=== PATIENT | female | born 1990 | race Caucasian/White ===

== ENCOUNTER 2016-10-07 14:46 | Emergency (ER) | payer OTHER ==
[2016-10-07] MEDS ORDERED: LORazepam 2 MG/ML SYRINGE IM STA (15:04)
--- NOTE | 2016-10-07 15:27 | ED ---
Anxiety HPI - General Chief Complaint: Anxiety Stated Complaint: Anxiety Time Seen by Provider: 10/07/16 14:57 Source: patient Mode of arrival: wheelchair - History of Present Illness Initial Comments: This 26-year-old white female presents complaining of anxiety and panic attacks. She states that this has been present over the last 3 days. She states that she has been having panic attacks every day. She had to leave work 3 days ago due to a panic attack. She apparently has a long-standing history of anxiety ever since childhood. She's been seeing a psychiatrist recently and was started on Latuda 3 weeks ago. They relate that this medication does not seem to be helping. Her next appointment with the psychiatrist is approximately one month away. She complains of having some lightheadedness, chest tightness, shortness of breath. She denies any extremity tingling. She is quite tearful. No other complaints or modifying factors. - Related Data Home Medications: Home Medications Medication Instructions Recorded Confirmed Lurasidone HCl [Latuda] 20 mg PO AC-SUPPER 10/07/16 10/07/16 diphenhydrAMINE HCL [Benadryl] 25 mg PO DAILY PRN 10/07/16 10/07/16 Previous Rx's Medication Instructions Recorded ALPRAZolam [Xanax] 0.5 mg PO Q8HR PRN #12 tab 10/07/16 Allergies/Adverse Reactions: Allergies Allergy/AdvReac Type Severity Reaction Status Date / Time No Known Allergies Allergy Verified 10/07/16 15:35 Review of Systems ROS Statement: Those systems with pertinent positive or pertinent negative responses have been documented in the HPI. ROS Other: All systems not noted in ROS Statement are negative. Past Medical History Past Medical History: No Reported History History of Any Multi-Drug Resistant Organisms: None Reported Past Surgical History: Section Past Psychological History: Anxiety, Depression, Schizoaffective Disorder Smoking Status: Current every day smoker Past Alcohol Use History: Occasional Past Drug Use History: Marijuana General Exam - General Exam Comments Initial Comments: GENERAL: The patient is well nourished and well hydrated. VITAL SIGNS: Heart rate, blood pressure, respiratory rate reviewed as recorded in nurse's notes. EYES: Pupils are round and reactive. Extraocular movements are intact. No conjunctival / lid redness or swelling. ENT: No external evidence of injury, swelling, or ecchymosis. Airway is patent. Throat is clear. NECK: Nontender. No swelling or evidence of injury. No subcutaneous emphysema. Trachea is midline. No thyroid mass. HEART: Regular rate and rhythm. Good peripheral pulses. LUNGS/CHEST: Breath sounds clear and equal bilaterally. No rales, rhonchi, or wheezes. No ecchymosis, subcutaneous emphysema, or tenderness. ABDOMEN: Abdomen soft without tenderness. No palpable masses or organomegaly. No peritoneal signs. No abdominal wall swelling or ecchymosis. EXTREMITIES: No extremity tenderness. Normal muscle tone and function. No thoracolumbar tenderness. NEUROLOGIC: Sensation is grossly intact. Cranial nerve exam reveals face is symmetrical, tongue is midline, speech is clear. SKIN: No abrasions or ecchymosis is noted. No induration or masses noted. PSYCHIATRIC: Alert and oriented. Appears very anxious and tearful. Limitations: no limitations Course Vital Signs 10/07/16 14:50 Temperature 98.4 F Pulse Rate 124 H Respiratory 22 Rate Blood Pressure 134/80 O2 Sat by Pulse 100 Oximetry Medical Decision Making - Medical Decision Making The patient was seen and examined. All diagnostics were reviewed. An EKG was done and this shows a normal sinus rhythm at a rate of 95. There is no acute ST -T wave changes identified. The MT interval is 130, QRS duration is 80, and the QTc interval is 447. She receives Ativan intramuscularly. She is feeling remarkably improved on recheck. There is no further chest pain or shortness of breath. It is felt as though all her symptoms are due to anxiety. She is counseled regarding anxiety in detail. She should follow-up with her psychiatrist for further medication dosing or change. She will be prescribed some Xanax in the short-term. She leaves in no identifiable distress. Disposition Clinical Impression: Acute anxiety, Panic attack Disposition: HOME SELF-CARE Condition: Good Instructions: Generalized Anxiety Disorder (ED), Panic Attack (ED) Additional Instructions: Please follow-up with her psychiatrist as soon as possible. Prescriptions: ALPRAZolam [Xanax] 0.5 mg PO Q8HR PRN #12 tab PRN Reason: Anxiety Referrals: Shemar Hartmann MD [Primary Care Provider] - 1-2 days Time of Disposition: 16:01
[2016-10-07 16:21] VITALS: BP 133/82; PULSE 89; RESP 16; TEMP 98.3
== END 2016-10-07 16:20 | disposition home or self-care (01) ==
LOC: EC 14:46
DX: F41.0 Panic disorder [episodic paroxysmal anxiety] (principal); F32.9 Major depressive disorder, single episode, unspecified; F17.200 Nicotine dependence, unspecified, uncomplicated; Z79.899 Other long term (current) drug therapy
CPT/HCPCS: 93005; 99283; 96372; J2060

== ENCOUNTER 2016-11-12 17:24 | Emergency (ER) | payer OTHER ==
[2016-11-12 17:29] VITALS: BP 123/76; PULSE 97; RESP 18; TEMP 99.9
--- NOTE | 2016-11-12 17:37 | ED ---
General Adult HPI - General Chief complaint: Extremity Injury, Upper Stated complaint: Wrist Injury Time Seen by Provider: 11/12/16 17:29 Source: patient, RN notes reviewed Mode of arrival: ambulatory Limitations: no limitations - History of Present Illness Initial comments: 26-year-old female presents for right wrist pain. She was at work carrying a tray and she heard a pop in her wrist now has pain along the outside. Patient states no other injury from the incident her pain is mild. Worse to full range of motion of the right wrist. Patient denies any other injuries patient denies any direct trauma that she is aware of. Patient denies any recent fever, chills , shortness of breath, chest pain, back pain, abdominal pain, nausea vomiting, numbness or tingling, dysuria or hematuria, constipation or diarrhea, headaches or visual changes, or any other current symptoms. - Related Data Home Medications Medication Instructions Recorded Confirmed Lurasidone HCl [Latuda] 40 mg PO AC-SUPPER 10/07/16 11/12/16 diphenhydrAMINE HCL [Benadryl] 25 mg PO DAILY PRN 10/07/16 11/12/16 ALPRAZolam [Xanax] 0.25 mg PO TID PRN 11/12/16 11/12/16 Allergies Allergy/AdvReac Type Severity Reaction Status Date / Time No Known Allergies Allergy Verified 11/12/16 17:29 Review of Systems ROS Statement: Those systems with pertinent positive or pertinent negative responses have been documented in the HPI. ROS Other: All systems not noted in ROS Statement are negative. Past Medical History Past Medical History: No Reported History Additional Past Medical History / Comment(s): lipoma rt abdominal wall, "borderline diabetes" History of Any Multi-Drug Resistant Organisms: None Reported Past Surgical History: Section Additional Past Surgical History / Comment(s): c sections x 2 Past Anesthesia/Blood Transfusion Reactions: Postoperative Nausea & Vomiting ( PONV) Additional Past Anesthesia/Blood Transfusion Reaction / Comment(s): no hx blood transfusion Past Psychological History: Anxiety, Depression, Schizoaffective Disorder Smoking Status: Current every day smoker - Past Family History Mother Family Medical History: No Reported History General Exam - General Exam Comments Initial Comments: General: The patient is awake and alert, in no distress, and does not appear acutely ill. Neck: The neck is supple, there is no tenderness. Cardiovascular: There is a regular rate and rhythm. No murmur, rub or gallop is appreciated. Respiratory: Lungs are clear to auscultation, respirations are non-labored, breath sounds are equal. No wheezes, stridor, rales, or rhonchi. Musculoskeletal: Sensation intact to both positive right upper x-ray. Fund motion of right elbow and right wrist and right hand. Some tenderness along the distal ulna. No bony tenderness throughout the hand. No anatomical snuffbox tenderness. No laxity. Neurological: CN II-XII intact, There are no obvious motor or sensory deficits. Coordination appears grossly intact. Speech is normal. Skin: Skin is warm and dry and no rashes or lesions are noted. Psychiatric: Normal mood and affect. Limitations: no limitations Course Vital Signs 11/12/16 17:26 Temperature 99.9 F H Pulse Rate 97 Respiratory 18 Rate Blood Pressure 123/76 O2 Sat by Pulse 100 Oximetry Medical Decision Making - Medical Decision Making 26-year-old female presents with history of right wrist strain. At this time we will start the patient on Motrin and Tylenol regimen for pain. Discussed ice. We discussed follow-up return parameters all patient's questions. She stated that she understood and she was in agreement with plan. All questions have been answered. She'll be discharged. - Radiology Data Radiology results: report reviewed, image reviewed Disposition Clinical Impression: Right wrist sprain Disposition: HOME SELF-CARE Condition: Stable Instructions: Wrist Sprain (ED) Additional Instructions: Please use medication as discussed. Please follow up with family doctor if symptoms have not improved over the next two days. Please return to the emergency room if your symptoms increase or worsen or for any other concerns. Referrals: Lorenzo Singh MD [Primary Care Provider] - 1-2 days Time of Disposition: 17:57
--- NOTE | 2016-11-12 17:52 | XR ---
EXAMINATION TYPE: XR wrist complete RT DATE OF EXAM: 11/12/2016 CLINICAL HISTORY: Right wrist pain after injury. TECHNIQUE: Frontal, lateral, scaphoid, and oblique images of the right wrist are obtained. COMPARISON: None FINDINGS: There is no acute fracture/dislocation evident in the right wrist. The joint spaces in th e right wrist appear within normal limits. The overlying soft tissue appears unremarkable. IMPRESSION: There is no acute fracture or dislocation in the right wrist.
== END 2016-11-12 18:14 | disposition home or self-care (01) ==
LOC: EC 17:24
DX: S63.501A Unspecified sprain of right wrist, initial encounter (principal); F25.9 Schizoaffective disorder, unspecified; F32.9 Major depressive disorder, single episode, unspecified; F41.9 Anxiety disorder, unspecified; F17.200 Nicotine dependence, unspecified, uncomplicated; Z79.899 Other long term (current) drug therapy; X58.XXXA Exposure to other specified factors, initial encounter; Y99.0 Civilian activity done for income or pay
CPT/HCPCS: 99283

== ENCOUNTER 2016-11-14 08:31 | Day surgery (SDC) | payer OTHER ==
[2016-11-12 09:30] VITALS: BMI 21.2
[~2016-11-14 08:31] MED LIST: DEXAMETHASONE SOD PHOSPHATE 10 MG/ML 1 ML VIAL IV ONE; HEPARIN SODIUM,PORCINE 5,000 UNIT/ML 1 ML VIAL SQ ONE; HYDROmorphone 0.5 MG/0.5 ML SYRINGE IVP PRN; LACTATED RINGERS 1,000 ML IV SCH; MIDAZOLAM 2 MG/2 ML VIAL IV PRN; ONDANSETRON 4 MG/2 ML VIAL IVP ONE; Pre Op ABX Message 1 EACH MISC MISCELLANE ONE; SCOPOLAMINE 1.5MG/72HR PATCH TRANSDERM ONE
[2016-11-14] MEDS ORDERED: LIDOCAINE 1% 20 ML VIAL (10MG/ML) FOR IV START INTRADERMA ONE (09:00)
[2016-11-14] MEDS ORDERED: BUPIVACAINE-EPI 0.5%-1:200,000 10 ML VIAL SQ ONE (09:19)
--- NOTE | 2016-11-14 09:55 | P.GSHP ---
History of Present Illness H&P Date: 11/14/16 Chief Complaint: Right abdominal wall lipoma Is a 26-year-old female referred from Dr. Lorenzo Lynn. Patient presents today for excision of right abdominal wall lipoma. Patient developed a 15 cm lipoma of her right abdominal wall. The lipomas located in the right lower quadrant. Past Medical History Past Medical History: No Reported History Additional Past Medical History / Comment(s): lipoma rt abdominal wall, "borderline diabetes" History of Any Multi-Drug Resistant Organisms: None Reported Past Surgical History: Section Additional Past Surgical History / Comment(s): c sections x 2 Past Anesthesia/Blood Transfusion Reactions: Postoperative Nausea & Vomiting ( PONV) Additional Past Anesthesia/Blood Transfusion Reaction / Comment(s): no hx blood transfusion Past Psychological History: Anxiety, Depression, Schizoaffective Disorder Smoking Status: Current every day smoker Past Alcohol Use History: Rare Additional Past Alcohol Use History / Comment(s): started smoking at age 13,on and off <1ppd Past Drug Use History: None Reported - Past Family History Mother Family Medical History: No Reported History Medications and Allergies Home Medications Medication Instructions Recorded Confirmed Type Lurasidone HCl [Latuda] 40 mg PO AC-SUPPER 10/07/16 11/12/16 History diphenhydrAMINE HCL [Benadryl] 25 mg PO DAILY PRN 10/07/16 11/12/16 History ALPRAZolam [Xanax] 0.25 mg PO TID PRN 11/12/16 11/12/16 History Allergies Allergy/AdvReac Type Severity Reaction Status Date / Time No Known Allergies Allergy Verified 11/12/16 17:29 Surgical - Exam Vital Signs Temp Pulse Resp BP Pulse Ox 98.0 F 93 18 110/83 100 11/14/16 09:06 11/14/16 09:06 11/14/16 09:06 11/14/16 09:06 11/14/16 09:06 - General well developed, no distress - Eyes PERRL - ENT normal pinna - Neck no masses - Respiratory normal expansion - Cardiovascular Rhythm: regular - Abdomen 13 cm lipoma of right lower quadrant abdominal wall Abdomen: soft, non tender Assessment and Plan Plan: Right lower quadrant abdominal wall lipoma. We will perform excision.
[2016-11-14] MEDS ORDERED: LIDOCAINE 1% INJ 10MG/ML (20 ML MDV) ONE (10:03)
[2016-11-14] MEDS ORDERED: MIDAZOLAM 2 MG/2 ML VIAL ONE (10:03)
[2016-11-14] MEDS ORDERED: fentaNYL (PF) 50 MCG/ML 2 ML AMP ONE (10:03)
[2016-11-14] MEDS ORDERED: PROPOFOL 10 MG/ML 20 ML VIAL IV ONE (10:03)
[2016-11-14] MEDS ORDERED: SODIUM CHLORIDE 0.9% 50 ML with ceFAZolin 2,000 MG IV ONE ×2 (10:25)
--- NOTE | 2016-11-14 10:56 | P.OP ---
Date of Procedure: 11/14/16 Preoperative Diagnosis: Right abdominal wall lipoma Postoperative Diagnosis: Right abdominal wall lipoma Anesthesia: LUPE Surgeon: Nii Morse Pathology: other (Abdominal wall lipoma) Condition: stable Disposition: PACU Description of Procedure: The patient's placed on the operative table in the supine position. She received general anesthesia. Her abdomen was prepped and draped in usual sterile fashion. The patient had a 20 cm lipoma located in the right lower quadrant. The skin was incised with 15 blade and then using sharp and blunt dissection and electrocautery the lipoma was dissected free from the subcutaneous tissue the fascia. The lipoma measured approximately 20 cm in diameter. The Bovie was used for hemostasis. A MAT drain is placed into the wound brought out through separate stab incision in the skin was closed interrupted 3-0 Monocryl suture. Dermabond was applied. Recovery in stable condition.
[2016-11-14 11:02] VITALS: RESP 16; TEMP 98.2
[2016-11-14 11:48] VITALS: BP 127/79; PULSE 73
[2016-11-14] MEDS ORDERED: HYDROcodone/APAP 5-325MG 1 EACH TAB PO ONE (12:01)
== END 2016-11-14 13:08 | disposition home or self-care (01) ==
LOC: OR 08:31
PROVIDERS: ATTEND Surgery
DX: D17.1 Benign lipomatous neoplasm of skin and subcutaneous tissue of trunk (principal); R73.03 Prediabetes; F17.200 Nicotine dependence, unspecified, uncomplicated; F32.9 Major depressive disorder, single episode, unspecified; F41.9 Anxiety disorder, unspecified; Z79.899 Other long term (current) drug therapy
CPT/HCPCS: 11406; 88304; J2250; J1100; J2405; J2001; J3010; J0690; J2704

== ENCOUNTER 2017-02-20 14:08 | Emergency (ER) | payer OTHER ==
[2017-02-20 15:00] VITALS: BP 137/86; PULSE 92; RESP 18; TEMP 98.2
--- NOTE | 2017-02-20 15:08 | ED ---
General Adult HPI - General Chief complaint: Fall Stated complaint: Fall/Rib Pain Time Seen by Provider: 02/20/17 14:51 Source: patient, RN notes reviewed Mode of arrival: ambulatory Limitations: no limitations - History of Present Illness Initial comments: 26 yo female presents to the ER with cc of right sided rib pain after a fall that occurred last night. Patient states she tripped over a toy and landed onto her right sided ribs on a toy box. Patient states that she had this happen last night she thought he would improve but states continued to be there and she is having pain when she takes a deep breath. Patient states nothing else was injured from the incident. Patient denies any medications today. Patient states that she just wanted make sure that everything was okay and that she did not break anything. Patient denies any other symptoms at this time.Patient denies any recent fever, chills, shortness of breath, chest pain, back pain, abdominal pain, nausea vomiting, numbness or tingling, dysuria or hematuria, constipation or diarrhea, headaches or visual changes, or any other current symptoms. - Related Data Home Medications Medication Instructions Recorded Confirmed diphenhydrAMINE HCL [Benadryl] 25 mg PO DAILY PRN 10/07/16 01/16/17 ALPRAZolam [Xanax] 0.5 mg PO BID 11/12/16 01/16/17 Lurasidone [Latuda] 20 mg PO BID 01/16/17 01/16/17 Allergies Allergy/AdvReac Type Severity Reaction Status Date / Time cat dander Allergy Rash/Hives Verified 02/20/17 14:50 Review of Systems ROS Statement: Those systems with pertinent positive or pertinent negative responses have been documented in the HPI. ROS Other: All systems not noted in ROS Statement are negative. Past Medical History Past Medical History: No Reported History Additional Past Medical History / Comment(s): lipoma rt abdominal wall, "borderline diabetes" History of Any Multi-Drug Resistant Organisms: None Reported Past Surgical History: Section Additional Past Surgical History / Comment(s): c sections x 2 Past Anesthesia/Blood Transfusion Reactions: Postoperative Nausea & Vomiting ( PONV) Additional Past Anesthesia/Blood Transfusion Reaction / Comment(s): no hx blood transfusion Past Psychological History: Anxiety, Depression, Schizoaffective Disorder Smoking Status: Current every day smoker Past Alcohol Use History: None Reported Past Drug Use History: None Reported - Past Family History Mother Family Medical History: No Reported History General Exam Limitations: no limitations General appearance: alert, in no apparent distress Eye exam: Present: normal appearance, PERRL, EOMI. Absent: scleral icterus, conjunctival injection, periorbital swelling ENT exam: Present: normal exam, mucous membranes moist Neck exam: Present: normal inspection. Absent: tenderness, meningismus, lymphadenopathy Respiratory exam: Present: normal lung sounds bilaterally, chest wall tenderness (Right lateral chest wall. Deep breath improves pain with splinting) . Absent: respiratory distress, wheezes, rales, rhonchi, stridor Cardiovascular Exam: Present: regular rate, normal rhythm, normal heart sounds. Absent: systolic murmur, diastolic murmur, rubs, gallop, clicks GI/Abdominal exam: Present: soft, normal bowel sounds. Absent: distended, tenderness, guarding, rebound, rigid Neurological exam: Present: alert, oriented X3 Psychiatric exam: Present: normal affect, normal mood Skin exam: Present: warm, dry, intact, normal color. Absent: rash Course Vital Signs 02/20/17 14:53 Temperature 98.2 F Pulse Rate 92 Respiratory 18 Rate Blood Pressure 137/86 O2 Sat by Pulse 100 Oximetry Medical Decision Making - Medical Decision Making 26-year-old female presents for fall with right-sided rib pain. At this time the patient's x-rays have been reviewed that show no acute fracture. At this time we did discuss follow-up and all questions. Patient stated they are in agreement with management of this plan. - Radiology Data Radiology results: report reviewed, image reviewed Disposition Clinical Impression: Fall, Contusion of rib on right side Disposition: HOME SELF-CARE Condition: Stable Instructions: Rib Contusion (ED) Additional Instructions: Please use medication as discussed. Please follow up with family doctor if symptoms have not improved over the next two days. Please return to the emergency room if your symptoms increase or worsen or for any other concerns. Referrals: Lorenzo Singh MD [Primary Care Provider] - 1-2 days Time of Disposition: 15:29
--- NOTE | 2017-02-20 15:23 | XR ---
EXAMINATION TYPE: XR ribs RT w pa chest x-ray DATE OF EXAM: 02/20/2017 CLINICAL HISTORY: Chest and right-sided rib pain after fall injury yesterday. TECHNIQUE: Single frontal view of the chest is obtained. A frontal and oblique images of the right-si ded ribs are acquired. COMPARISON: Chest x-ray April 16, 2015. FINDINGS: There is no focal air space opacity, pleural effusion, or pneumothorax seen. The cardiac silhouette size is within normal limits. The osseous structures are intact. Dedicated images of right-sided ribs show no acute displaced fracture. Overlying soft tissue is unrem arkable. IMPRESSION: 1. No acute cardiopulmonary process. 2. No acute displaced right-sided rib fractures are seen.
== END 2017-02-20 15:35 | disposition home or self-care (01) ==
LOC: EC 14:08
DX: S20.211A Contusion of right front wall of thorax, initial encounter (principal); F41.9 Anxiety disorder, unspecified; F32.9 Major depressive disorder, single episode, unspecified; F25.9 Schizoaffective disorder, unspecified; F17.200 Nicotine dependence, unspecified, uncomplicated; Z91.09 Other allergy status, other than to drugs and biological substances; Z79.899 Other long term (current) drug therapy; W18.09XA Striking against other object with subsequent fall, initial encounter
CPT/HCPCS: 99283

== ENCOUNTER 2018-09-10 11:13 | Emergency (ER) | payer OTHER ==
[2018-09-10] MEDS ORDERED: ACETAMINOPHEN TAB 325 MG TAB PO STA (12:03)
--- NOTE | 2018-09-10 12:04 | ED ---
General Adult HPI - General Chief complaint: ENT Stated complaint: Thoat pain Time Seen by Provider: 09/10/18 11:27 Source: patient, RN notes reviewed Mode of arrival: ambulatory Limitations: no limitations - History of Present Illness Initial comments: 28-year-old female presents to the emergency department for a chief complaint of sore throat. Patient states that she started to have a sore throat yesterday. States that today it worsened. States that it hurts to swallow but denies any difficulty swelling. States that she has noticed "white spots" on her tonsils. Denies having a cough or congestion. Does admit to chills.Patient has no other complaints at this time including shortness of breath, chest pain, abdominal pain, nausea or vomiting, headache, or visual changes. - Related Data Home Medications Medication Instructions Recorded Confirmed diphenhydrAMINE HCL [Benadryl] 25 mg PO DAILY PRN 10/07/16 01/16/17 ALPRAZolam [Xanax] 0.5 mg PO BID 11/12/16 01/16/17 Lurasidone [Latuda] 20 mg PO BID 01/16/17 01/16/17 Previous Rx's Medication Instructions Recorded Amoxicillin 875 mg PO Q12HR #20 tablet 09/10/18 Allergies Allergy/AdvReac Type Severity Reaction Status Date / Time cat dander Allergy Rash/Hives Verified 09/10/18 11:22 Review of Systems ROS Statement: Those systems with pertinent positive or pertinent negative responses have been documented in the HPI. ROS Other: All systems not noted in ROS Statement are negative. Past Medical History Past Medical History: No Reported History Additional Past Medical History / Comment(s): lipoma rt abdominal wall,"borderline diabetes" History of Any Multi-Drug Resistant Organisms: None Reported Past Surgical History: Section Additional Past Surgical History / Comment(s): c sections x 2 Past Anesthesia/Blood Transfusion Reactions: Postoperative Nausea & Vomiting (PONV) Additional Past Anesthesia/Blood Transfusion Reaction / Comment(s): no hx blood transfusion Past Psychological History: Anxiety, Depression, Schizoaffective Disorder Past Alcohol Use History: Rare - Past Family History Mother Family Medical History: No Reported History General Exam Limitations: no limitations General appearance: alert, in no apparent distress Head exam: Present: atraumatic, normocephalic, normal inspection Eye exam: Present: normal appearance, PERRL, EOMI. Absent: scleral icterus, conjunctival injection, periorbital swelling ENT exam: Present: normal exam, mucous membranes moist, TM's normal bilaterally, normal external ear exam. Absent: normal oropharynx (uvula midline, tonsillar exudates noted bilaterally) Neck exam: Present: normal inspection, full ROM. Absent: tenderness, meningismus, lymphadenopathy Respiratory exam: Present: normal lung sounds bilaterally. Absent: respiratory distress, wheezes, rales, rhonchi, stridor Cardiovascular Exam: Present: regular rate, normal rhythm, normal heart sounds. Absent: systolic murmur, diastolic murmur, rubs, gallop, clicks GI/Abdominal exam: Present: soft, normal bowel sounds. Absent: distended, tenderness, guarding, rebound, rigid Neurological exam: Present: alert, oriented X3 Psychiatric exam: Present: normal affect, normal mood Course Vital Signs 09/10/18 11:21 Temperature 99.6 F Pulse Rate 109 H Respiratory 20 Rate Blood Pressure 146/102 O2 Sat by Pulse 98 Oximetry Medical Decision Making - Medical Decision Making 28-year-old female presents to the emergency Department for sore throat since yesterday. Patient is a low-grade fever. Anterior cervical lymphadenopathy palpated. No difficulty swallowing. Patient handling secretions, no acute distress. On exam patient does have tonsillar exudates noted bilaterally. T onsillar pillars are symmetric, uvula is midline, there is no evidence of peritonsillar abscess. Strep is positive. Patient will be treated with amoxicillin. Recommended following up with primary care in 1-2 days or returning here if she has any worsening symptoms. - Lab Data Lab Results 09/10/18 Range/Units 12:00 Group A Strep Rapid Positive A (Negative) Disposition Clinical Impression: Strep pharyngitis Disposition: HOME SELF-CARE Condition: Good Instructions (If sedation given, give patient instructions): Strep Throat (ED) Additional Instructions: Please take antibiotics as directed. Take Motrin and Tylenol for fever. Follow-up with primary care in 1-2 days. Return here to the emergency department if you have any worsening symptoms. Prescriptions: Amoxicillin 875 mg PO Q12HR #20 tablet Is patient prescribed a controlled substance at d/c from ED?: No Referrals: Lorenzo Singh MD [Primary Care Provider] - 1-2 days Time of Disposition: 13:25
[2018-09-10] MEDS ORDERED: AMOXICILLIN 500MG STARTER PACK 3 CAP BTL PO STA (13:33)
[2018-09-10 14:03] VITALS: BP 145/92; PULSE 80; RESP 16; TEMP 98.9
== END 2018-09-10 14:01 | disposition home or self-care (01) ==
LOC: EC 11:13
DX: J02.0 Streptococcal pharyngitis (principal); J30.81 Allergic rhinitis due to animal (cat) (dog) hair and dander; F41.9 Anxiety disorder, unspecified; F32.9 Major depressive disorder, single episode, unspecified; F25.9 Schizoaffective disorder, unspecified; R73.03 Prediabetes; Z79.899 Other long term (current) drug therapy
CPT/HCPCS: 87430; 99283

== ENCOUNTER 2019-12-17 13:49 | Emergency (ER) | payer OTHER ==
[2019-12-17] MEDS ORDERED: SODIUM CHLORIDE 0.9% 500 ML 500 ML IV STA (15:35)
[2019-12-17 16:03] LABS: Appearance,Urine Clear (Clear); Bilirubin,Urine Negative (Negative); Blood,Urine Negative (Negative); Color,Urine Yellow; Glucose,Urine (UA) Negative (Negative); Ketones,Urine Negative (Negative); Leukocyte Esterase,Urine Negative (Negative); Nitrite,Urine Negative (Negative); PH, Urine 6.5 (5.0-8.0); Protein,Urine Negative (Negative); Specific Gravity,Urine 1.015 (1.001-1.035); Urobilinogen,Urine <2.0 mg/dL (<2.0)
[2019-12-17 16:04] LABS: Basophils # (A) 0.1 k/uL (0-0.2); Basophils % (A) 1 %; Eosinophils # (A) 0.2 k/uL (0-0.7); Eosinophils % (A) 1 %; HCT 40.1 % (34.0-46.0); HGB 13.5 gm/dL (11.4-16.0); Lymphocytes # (A) 1.3 k/uL (1.0-4.8); Lymphocytes % (A) 10 %; MCH 30.8 pg (25.0-35.0); MCHC 33.7 g/dL (31.0-37.0); MCV 91.3 fL (80.0-100.0); Mean Platelet Volume 7.6; Monocytes # (A) 0.5 k/uL (0-1.0); Monocytes % (A) 4 %; Neutrophils # (A) 10.8 k/uL (1.3-7.7); Neutrophils % (A) 84 %; Platelet Count 208 k/uL (150-450); RBC 4.39 m/uL (3.80-5.40); RDW 12.2 % (11.5-15.5); WBC 12.9 k/uL (3.8-10.6)
[2019-12-17 16:16] LABS: ALT 20 U/L (4-34); AST 28 U/L (14-36); Acetaminophen <10.0 ug/mL; African American GFR (CKD) >90 (>60 ml/min/1.73 sqM); Albumin 4.3 g/dL (3.5-5.0); Alcohol <10 mg/dL; Alkaline Phosphatase 37 U/L (38-126); Anion Gap 5 mmol/L; Blood Urea Nitrogen 12 mg/dL (7-17); Calcium 9.3 mg/dL (8.4-10.2); Carbon Dioxide 25 mmol/L (22-30); Chloride 109 mmol/L (98-107); Glucose 96 mg/dL (74-99); Lipase 98 U/L (23-300); Non-African American GFR(CKD) >90 (>60 ml/min/1.73 sqM); Salicylate <1.0 mg/dL; Sodium 139 mmol/L (137-145); Total Bilirubin 0.5 mg/dL (0.2-1.3); Total Protein 7.1 g/dL (6.3-8.2)
[2019-12-17 16:18] LABS: Potassium 4.5 mmol/L (3.5-5.1)
--- NOTE | 2019-12-17 16:37 | XR ---
EXAMINATION TYPE: XR abdomen acute w cxr DATE OF EXAM: 12/17/2019 COMPARISON: Chest x-ray 04/16/2015 HISTORY: Abdominal pain diarrhea. TECHNIQUE: 4 views FINDINGS: Heart and mediastinum are normal. Lungs are clear. Diaphragm is normal. Bowel gas pattern i s normal. There is no sign of intestinal obstruction or pneumoperitoneum. Fecal pattern is normal. Th ere is no evidence of a mass. IMPRESSION: Nonacute abdomen. Chest x-ray unchanged compared to old exam.
[2019-12-17 17:14] LABS: Amphetamine Screen,Urine Not Detected (NotDetected); Barbiturate Screen,Urine Not Detected (NotDetected); Benzodiazepines Screen,Urine Not Detected (NotDetected); Cocaine Screen,Urine Not Detected (NotDetected); Methadone Screen, Urine Not Detected (NotDetected); Opiate Screen,Urine Not Detected (NotDetected); Oxycodone Screen, Urine Not Detected (NotDetected); Phencyclidine Screen,Urine Not Detected (NotDetected); Tricyclic Antidepressant,Urine Not Detected (NotDetected); Urn Cannabinoid Scrn Detected (NotDetected)
--- NOTE | 2019-12-17 17:52 | ED ---
General Adult HPI - General Chief complaint: Abdominal Pain Stated complaint: FEVER, COUGH, DIARRHEA Time Seen by Provider: 12/17/19 15:10 Source: patient, RN notes reviewed, old records reviewed Mode of arrival: ambulatory Limitations: no limitations - History of Present Illness Initial comments: 29-year-old female patient to ED for diarrhea abdominal discomfort earlier in the day that has since resolved. She denies any other acute complaints. She is requesting to be possibly tested for any sort of ingestants. Systemic: Pt denies fatigue, fever/chills, rash. Pt denies weakness, night sweats, weight loss. Neuro: Pt denies headache, visual disturbances, syncope or pre-syncope. HEENT: Pt denies ocular discharge or irritation, otalgia, rhinorrhea, pharyngitis or notable lymphadenopathy. Cardiopulmonary: Pt denies chest pain, SOB, heart palpitations, dyspnea on exertion. Abdominal/GI: Pt denies abdominal pain. : Pt denies dysuria, burning w/ urination, frequency/urgency. Denies new onset urinary or bowel incontinence. MSK: Pt denies myalgia, loss of strength or function in extremities. Neuro: Pt denies new onset weakness, paresthesias. - Related Data Home Medications Medication Instructions Recorded Confirmed Glucosamine Sulfate 500 mg PO DAILY 12/17/19 12/17/19 Methylsulfonylmethane [MSM] 1,000 mg PO DAILY 12/17/19 12/17/19 Turmeric Root Extract [Turmeric] 500 mg PO DAILY 12/17/19 12/17/19 Allergies Allergy/AdvReac Type Severity Reaction Status Date / Time cat dander Allergy Rash/Hives Verified 12/17/19 17:20 Review of Systems ROS Statement: Those systems with pertinent positive or pertinent negative responses have been documented in the HPI. ROS Other: All systems not noted in ROS Statement are negative. Past Medical History Past Medical History: No Reported History Additional Past Medical History / Comment(s): lipoma rt abdominal wall,"borderline diabetes" History of Any Multi-Drug Resistant Organisms: None Reported Past Surgical History: Section Additional Past Surgical History / Comment(s): c sections x 2 Past Anesthesia/Blood Transfusion Reactions: Postoperative Nausea & Vomiting (PONV) Additional Past Anesthesia/Blood Transfusion Reaction / Comment(s): no hx blood transfusion Past Psychological History: Anxiety, Depression, Schizoaffective Disorder Smoking Status: Former smoker, Vaper Past Alcohol Use History: Rare Past Drug Use History: Marijuana - Past Family History Mother Family Medical History: No Reported History General Exam - General Exam Comments Initial Comments: Constitutional: NAD, AOX3, Pt has pleasant affect. HEENT: NC/AT, trachea midline, neck supple, no lymphadenopathy. Posterior pharynx non erythematous, without exudates. External ears appear normal, without discharge. Mucous membranes moist. Eyes PERRLA, EOM intact. There is no scleral icterus. No pallor noted. Cardiopulmonary: RRR, no murmurs, rubs or gallops, no JVD noted. Lungs CTAB in anterior and posterior gonzalez. No peripheral edema. Abdominal exam: Abdomen soft and non-distended. Abdomen non-tender to palpation in all 4 quadrants. Bowel sounds active in LLQ. No hepatosplenomegaly. No ecchymosis Neuro: CN II-XII grossly intact. No nuchal rigidity. MSK: ROM in upper and lower extremities, 5/5 stregnth. Limitations: no limitations Course Vital Signs 12/17/19 12/17/19 12/17/19 13:57 17:24 18:17 Temperature 98.3 F 98.5 F 98.7 F Pulse Rate 122 H 75 76 Respiratory 20 18 16 Rate Blood Pressure 132/89 142/38 124/93 O2 Sat by Pulse 97 97 99 Oximetry Medical Decision Making - Medical Decision Making 29-year-old female patient ED for evaluation of nausea diarrhea has been going on for couple of days. No acute discomfort right now. Denies any blood. Exam negative for acute pathology. Laboratory investigations revealed mild leukocytosis. CXR negative for acute pathology. Clincal presentation consistent with a gastroenteritis like syndrome. Patient will be discharged and will follow up with PCP tomorrow. Will return to ED with any worsening symptoms. Case discussed with Dr. Scott. - Lab Data Result diagrams: 12/17/19 15:45 12/17/19 15:45 Lab Results 12/17/19 12/17/19 12/17/19 Range/Units 15:45 15:45 15:45 WBC 12.9 H (3.8-10.6) k/uL RBC 4.39 (3.80-5.40) m/uL Hgb 13.5 (11.4-16.0) gm/dL Hct 40.1 (34.0-46.0) % MCV 91.3 (80.0-100.0) fL MCH 30.8 (25.0-35.0) pg MCHC 33.7 (31.0-37.0) g/dL RDW 12.2 (11.5-15.5) % Plt Count 208 (150-450) k/uL Neutrophils % 84 % Lymphocytes % 10 % Monocytes % 4 % Eosinophils % 1 % Basophils % 1 % Neutrophils # 10.8 H (1.3-7.7) k/uL Lymphocytes # 1.3 (1.0-4.8) k/uL Monocytes # 0.5 (0-1.0) k/uL Eosinophils # 0.2 (0-0.7) k/uL Basophils # 0.1 (0-0.2) k/uL Sodium (137-145) mmol/L Potassium (3.5-5.1) mmol/L Chloride (98-107) mmol/L Carbon Dioxide (22-30) mmol/L Anion Gap mmol/L BUN (7-17) mg/dL Creatinine (0.52-1.04) mg/dL Est GFR (CKD-EPI)AfAm (>60 ml/min/1.73 sqM) Est GFR (CKD-EPI)NonAf (>60 ml/min/1.73 sqM) Glucose (74-99) mg/dL Plasma Lactic Acid Bernardino (0.7-2.0) mmol/L Calcium (8.4-10.2) mg/dL Total Bilirubin (0.2-1.3) mg/dL AST (14-36) U/L ALT (4-34) U/L Alkaline Phosphatase (38-126) U/L Total Protein (6.3-8.2) g/dL Albumin (3.5-5.0) g/dL Lipase (23-300) U/L Urine Color Yellow Urine Appearance Clear (Clear) Urine pH 6.5 (5.0-8.0) Ur Specific Marion 1.015 (1.001-1.035) Urine Protein Negative (Negative) Urine Glucose (UA) Negative (Negative) Urine Ketones Negative (Negative) Urine Blood Negative (Negative) Urine Nitrite Negative (Negative) Urine Bilirubin Negative (Negative) Urine Urobilinogen <2.0 (<2.0) mg/dL Ur Leukocyte Esterase Negative (Negative) Urine HCG, Qual Not Detected (Not Detectd) Salicylates mg/dL Urine Opiates Screen (NotDetected) Ur Oxycodone Screen (NotDetected) Urine Methadone Screen (NotDetected) Ur Propoxyphene Screen (NotDetected) Acetaminophen ug/mL Ur Barbiturates Screen (NotDetected) U Tricyclic Antidepress (NotDetected) Ur Phencyclidine Scrn (NotDetected) Ur Amphetamines Screen (NotDetected) U Methamphetamines Scrn (NotDetected) U Benzodiazepines Scrn (NotDetected) Urine Cocaine Screen (NotDetected) U Marijuana (THC) Screen (NotDetected) Serum Alcohol mg/dL 12/17/19 12/17/19 12/17/19 Range/Units 15:45 15:45 15:45 WBC (3.8-10.6) k/uL RBC (3.80-5.40) m/uL Hgb (11.4-16.0) gm/dL Hct (34.0-46.0) % MCV (80.0-100.0) fL MCH (25.0-35.0) pg MCHC (31.0-37.0) g/dL RDW (11.5-15.5) % Plt Count (150-450) k/uL Neutrophils % % Lymphocytes % % Monocytes % % Eosinophils % % Basophils % % Neutrophils # (1.3-7.7) k/uL Lymphocytes # (1.0-4.8) k/uL Monocytes # (0-1.0) k/uL Eosinophils # (0-0.7) k/uL Basophils # (0-0.2) k/uL Sodium 139 (137-145) mmol/L Potassium 4.5 (3.5-5.1) mmol/L Chloride 109 H (98-107) mmol/L Carbon Dioxide 25 (22-30) mmol/L Anion Gap 5 mmol/L BUN 12 (7-17) mg/dL Creatinine 0.73 (0.52-1.04) mg/dL Est GFR (CKD-EPI)AfAm >90 (>60 ml/min/1.73 sqM) Est GFR (CKD-EPI)NonAf >90 (>60 ml/min/1.73 sqM) Glucose 96 (74-99) mg/dL Plasma Lactic Acid Bernardino 0.9 (0.7-2.0) mmol/L Calcium 9.3 (8.4-10.2) mg/dL Total Bilirubin 0.5 (0.2-1.3) mg/dL AST 28 (14-36) U/L ALT 20 (4-34) U/L Alkaline Phosphatase 37 L (38-126) U/L Total Protein 7.1 (6.3-8.2) g/dL Albumin 4.3 (3.5-5.0) g/dL Lipase 98 (23-300) U/L Urine Color Urine Appearance (Clear) Urine pH (5.0-8.0) Ur Specific Marion (1.001-1.035) Urine Protein (Negative) Urine Glucose (UA) (Negative) Urine Ketones (Negative) Urine Blood (Negative) Urine Nitrite (Negative) Urine Bilirubin (Negative) Urine Urobilinogen (<2.0) mg/dL Ur Leukocyte Esterase (Negative) Urine HCG, Qual (Not Detectd) Salicylates <1.0 mg/dL Urine Opiates Screen Not Detected (NotDetected) Ur Oxycodone Screen Not Detected (NotDetected) Urine Methadone Screen Not Detected (NotDetected) Ur Propoxyphene Screen Not Detected (NotDetected) Acetaminophen <10.0 ug/mL Ur Barbiturates Screen Not Detected (NotDetected) U Tricyclic Antidepress Not Detected (NotDetected) Ur Phencyclidine Scrn Not Detected (NotDetected) Ur Amphetamines Screen Not Detected (NotDetected) U Methamphetamines Scrn Not Detected (NotDetected) U Benzodiazepines Scrn Not Detected (NotDetected) Urine Cocaine Screen Not Detected (NotDetected) U Marijuana (THC) Screen Detected H (NotDetected) Serum Alcohol <10 mg/dL - EKG Data -: EKG Interpreted by Me (and Dr. Scott ) EKG Comments: ventricular rate 65, SD interval 134, QRS 90, QT/QTC 384/399. Normal sinus rhythm. Left axis deviation. No concern for acute ischemia this time. Disposition Clinical Impression: Diarrhea Disposition: HOME SELF-CARE Condition: Stable Instructions (If sedation given, give patient instructions): Acute Diarrhea (ED) Additional Instructions: Follow up with PCP tomorrow. Return to ED with any worsening symptoms. Is patient prescribed a controlled substance at d/c from ED?: No Referrals: Lorenzo Singh MD [Primary Care Provider] - 1-2 days
[2019-12-17 18:18] VITALS: BP 124/93; PULSE 76; RESP 16; TEMP 98.7
== END 2019-12-17 18:18 | disposition home or self-care (01) ==
LOC: EC 13:49
DX: R19.7 Diarrhea, unspecified (principal); D72.829 Elevated white blood cell count, unspecified; R11.0 Nausea; R73.03 Prediabetes; Z87.891 Personal history of nicotine dependence; Z91.048 Other nonmedicinal substance allergy status; Z87.19 Personal history of other diseases of the digestive system; Z98.890 Other specified postprocedural states
CPT/HCPCS: 36415; 93005; 80053; 83605; 83690; 85025; 81003; 81025; 80306; 83520; 74022; 99284; G0480 ×2; 80320; 80329

== ENCOUNTER 2021-03-30 18:34 | Inpatient (IN) | payer MEDICAID, OTHER ==
[2021-03-30] MEDS ORDERED: HALOPERIDOL LACTATE 5 MG/ML 1 ML VIAL IM STA (19:05)
--- NOTE | 2021-03-30 19:54 | ED ---
General Adult HPI - General Chief complaint: Psychiatric Symptoms Stated complaint: petitioned Time Seen by Provider: 03/30/21 19:00 Source: patient, RN notes reviewed, old records reviewed Mode of arrival: ambulatory Limitations: no limitations - History of Present Illness Initial comments: Patient is a 30-year-old female with past medical history remarkable for polysubstance abuse, who is petitioned him brought in by nursing assistants teacher with a court order. Denies any suicidal, homicidal, ideations, attempts, plans. Denies any visual or auditory hallucinations. States she does not know why she is here. His great deal of pressured speech, appears to be having some delusions saying her parents are not a real parents. She denies any drug use. Denies any alcohol use. States she shouldn't be here. She is not willing to cooperate with evaluation of this time. She is extremely agitated. Patient presents for psychiatric evaluation. Petition states "locked bedroom door and climbed out of window, left residence. Has been chronic cameras stealing factors off of porch. Multiple delusional statements. Aggressive behavior." - Related Data Home Medications Medication Instructions Recorded Confirmed Glucosamine Sulfate 500 mg PO DAILY 12/17/19 12/17/19 Methylsulfonylmethane [MSM] 1,000 mg PO DAILY 12/17/19 12/17/19 Turmeric Root Extract [Turmeric] 500 mg PO DAILY 12/17/19 12/17/19 Allergies Allergy/AdvReac Type Severity Reaction Status Date / Time cat dander Allergy Rash/Hives Verified 03/30/21 18:38 Review of Systems ROS Statement: Those systems with pertinent positive or pertinent negative responses have been documented in the HPI. Review of Systems: CONST: Denies fever EYES: Denies blurry vision ENT: Denies nasal congestion C/V: Denies Chest pain RESP: Denies shortness of breath GI: Denies abdominal pain : Denies dysuria SKIN: Denies rash. MSK: Denies joint pain. NEURO: Denies headache PSYCH: Denies suicidal and homicidal ideations/plans/attempts. Denies visual or auditory hallucinations. ROS Other: All systems not noted in ROS Statement are negative. Past Medical History Past Medical History: No Reported History Additional Past Medical History / Comment(s): lipoma rt abdominal wall,"borderline diabetes" History of Any Multi-Drug Resistant Organisms: None Reported Past Surgical History: Section Additional Past Surgical History / Comment(s): c sections x 2 Past Anesthesia/Blood Transfusion Reactions: Postoperative Nausea & Vomiting (PONV) Additional Past Anesthesia/Blood Transfusion Reaction / Comment(s): no hx blood transfusion Past Psychological History: Anxiety, Depression, Schizoaffective Disorder Smoking Status: Former smoker, Vaper Past Alcohol Use History: None Reported, Rare Past Drug Use History: Marijuana, Methamphetamine - Past Family History Mother Family Medical History: No Reported History General Exam - General Exam Comments Initial Comments: General: Appears anxious. HEAD: Normal with no signs of head trauma. EYES: PERRLA, EOMI, conjunctiva normal, no discharge. Pupils 2 mm and equal bilaterally. ENT: Hearing grossly intact, normal oropharynx. RESPIRATORY: Clear breath sounds bilaterally. No wheezes, rales, or rhonchi. C/V: Tachycardic with a regular rhythm. S1 and S2 auscultated, no edema, peripheral pulses 2+ and intact throughout ABD: Abd is soft, nontender, nondistended EXT: Normal range of motion, no obvious deformity SKIN: No rashes or lesions observed on exposed skin. NEURO: Alert and oriented 3. No focal deficits. Limitations: no limitations Course Vital Signs 03/30/21 03/30/21 18:38 20:45 Temperature 98.7 F Pulse Rate 129 H Respiratory 20 18 Rate Blood Pressure 155/82 O2 Sat by Pulse 97 Oximetry Procedures - Restraint - Face to Face Restraint Occurrence 1 Patient's Immediate Situation: Endangers staff safety, Violent behavior Patient's Immediate Situation - Comment: agitated, unwilling to cooperate as a petitioned patient for psychiatric evaluat ion. Making threatening statements. Patient's Reaction to the Intervention: Appropriate Patient's Medical & Behavioral Condition: Awake, Alert, Follows directions, Agitated, Flight of ideas Need to Continue or Terminate Restraint or Seclusion: Continue Face to Face Eval of Restraint Date: 03/30/21 Face to Face Eval of Restraint Time: 19:28 Medical Decision Making - Medical Decision Making Based on the patient's presentation and physical exam, she does appear acutely psychotic, possibly manic. She has pressured speech. Appears delusional. I believe she requires psychiatric evaluation. She was uncooperative with staff, and was very threatening and therefore did require placement of restraints. See separate face to face note for further information. She received Ativan. I do not believe that she presently laboratory studies at this time. I did not believe that she presently imaging at this time. BAT is 0. UDS is positive for marijuana, methamphetamine, amphetamine. Patient is medically cleared for evaluation by psychiatry. CT abd pelvis showed no intrabd process. Psychiatry team the patient requires admission to inpatient psych. Patient was therefore admitted in stable condition. - Lab Data Lab Results 03/30/21 03/30/21 Range/Units 21:05 21:05 Urine Opiates Screen Not Detected (NotDetected) Ur Oxycodone Screen Not Detected (NotDetected) Urine Methadone Screen Not Detected (NotDetected) Ur Propoxyphene Screen Not Detected (NotDetected) Ur Barbiturates Screen Not Detected (NotDetected) U Tricyclic Antidepress Not Detected (NotDetected) Ur Phencyclidine Scrn Not Detected (NotDetected) Ur Amphetamines Screen Detected H (NotDetected) U Methamphetamines Scrn Detected H (NotDetected) U Benzodiazepines Scrn Not Detected (NotDetected) Urine Cocaine Screen Not Detected (NotDetected) U Marijuana (THC) Screen Detected H (NotDetected) Coronavirus (PCR) Not Detected (Not Detectd) Disposition Clinical Impression: Encounter for psychiatric assessment Disposition: ADMITTED IP TO THIS [facility] Condition: Stable Referrals: Lorenzo Singh MD [Primary Care Provider] - 1-2 days
--- NOTE | 2021-03-30 21:48 | CT ---
EXAMINATION TYPE: CT abdomen pelvis wo con DATE OF EXAM: 03/30/2021 COMPARISON: None HISTORY: Possible foreign body. CT DLP: 322.7 mGycm Automated exposure control for dose reduction was used. Images obtained from the diaphragm to the floor the pelvis with no contrast. Lung bases are clear. There is no pleural effusion. Heart size is normal. There is no pericardial eff usion. Liver spleen and stomach appear normal. Bile ducts are nondilated. Gallbladder is contracted. There is no sign of pancreatic mass. Kidneys have normal size. There is no hydronephrosis. There is n o retroperitoneal adenopathy. Exam limited by lack of contrast. Urinary bladder almost empty. Uterus is anteverted. There is no evidence of a pelvic mass. There is n o free fluid in the pelvis. There is no inguinal hernia. There is no mesenteric edema. There is no ascites or free air. There is no sign of a bowel obstructio n. Appendix not seen. No sign of thickened appendix. There are phleboliths in the pelvis. The lumbar vertebrae have normal alignment. Posterior elements are intact. Bony pelvis is intact. The hip joints are intact. IMPRESSION: Negative exam. No renal stone or obstruction. No evidence of abdominal foreign body.
[2021-03-30 22:06] LABS: Amphetamine Screen,Urine Detected (NotDetected); Barbiturate Screen,Urine Not Detected (NotDetected); Benzodiazepines Screen,Urine Not Detected (NotDetected); Cocaine Screen,Urine Not Detected (NotDetected); Methadone Screen, Urine Not Detected (NotDetected); Opiate Screen,Urine Not Detected (NotDetected); Oxycodone Screen, Urine Not Detected (NotDetected); Phencyclidine Screen,Urine Not Detected (NotDetected); Tricyclic Antidepressant,Urine Not Detected (NotDetected); Urn Cannabinoid Scrn Detected (NotDetected)
[2021-03-30] MEDS: LORazepam 2 MG/ML INJ IM STA (23:31)
[2021-03-30] MEDS ORDERED: LORazepam 2 MG/ML INJ IM STA (23:45)
[2021-03-30] MEDS ORDERED: HALOPERIDOL LACTATE 5 MG/ML 1 ML VIAL IM PRN (23:49)
--- NOTE | 2021-03-31 00:06 | ED ---
Medical Decision Making - Lab Data Lab Results 03/30/21 03/30/21 Range/Units 21:05 21:05 Urine Opiates Screen Not Detected (NotDetected) Ur Oxycodone Screen Not Detected (NotDetected) Urine Methadone Screen Not Detected (NotDetected) Ur Propoxyphene Screen Not Detected (NotDetected) Ur Barbiturates Screen Not Detected (NotDetected) U Tricyclic Antidepress Not Detected (NotDetected) Ur Phencyclidine Scrn Not Detected (NotDetected) Ur Amphetamines Screen Detected H (NotDetected) U Methamphetamines Scrn Detected H (NotDetected) U Benzodiazepines Scrn Not Detected (NotDetected) Urine Cocaine Screen Not Detected (NotDetected) U Marijuana (THC) Screen Detected H (NotDetected) Coronavirus (PCR) Not Detected (Not Detectd) Disposition Clinical Impression: Encounter for psychiatric assessment Disposition: ADMITTED IP TO THIS [facility] Condition: Stable Referrals: Lorenzo Singh MD [Primary Care Provider] - 1-2 days Procedures - Restraint - Face to Face Restraint Occurrence 1 Patient's Immediate Situation: Endangers self safety, Endangers staff safety Patient's Reaction to the Intervention: Uncooperative, Angry, Hostile, Aggressive, Resistive to care Patient's Medical & Behavioral Condition: Agitated Face to Face Eval of Restraint Date: 03/31/21 Face to Face Eval of Restraint Time: 20:23 (Documented as scribe for Dr. Prosper Sands)
[2021-03-31] MEDS ORDERED: MAG HYDROX/AL HYDROX/SIMETH 30 ML CUP PO PRN (01:36)
[2021-03-31] MEDS ORDERED: HALOPERIDOL LACTATE 5 MG/ML 1 ML VIAL IM PRN (01:36)
[2021-03-31] MEDS ORDERED: MAGNESIUM HYDROXIDE 2,400 MG/10 ML CUP PO PRN (01:36)
[2021-03-31] MEDS ORDERED: LORazepam 1 MG TAB PO PRN (01:36)
[2021-03-31] MEDS ORDERED: LORazepam 2 MG/ML INJ IM PRN (01:45)
[2021-03-31] MEDS ORDERED: haloperidoL 5 MG TAB PO PRN (01:47)
[2021-03-31] MEDS: LORazepam 2 MG/ML INJ IM STA (08:12)
[2021-03-31] MEDS: NICOTINE 14MG/24HR PATCH TRANSDERM SCH (09:09)
--- NOTE | 2021-03-31 15:56 | CONS ---
CONSULTATION This 30-year-old white female has a history of polysubstance abuse. The patient by the court order for family discovered some pressured speech, some delusions, saying her parents were not real parents, not cooperative, agitated. She locked herself in the bedroom climbed out of the window, left residence. Apparently she was stealing suff off a and delusional statements, aggressive behavior. She is here for mental health. She was found to be a drug screen positive for methamphetamines, amphetamines and marijuana. MEDICATION: She just takes some [id number] medications. ALLERGIES: CAT DANDER. Fourteen-point review of systems otherwise is negative. Past medical history is negative. Psych history: Anxiety, depression, schizoaffective. Drug use marijuana, methamphetamine. PHYSICAL EXAMINATION: Temperature 97.8, pulse low 100s, respiratory rate 18 to 20, blood pressure 150s over 80s, O2 97. Tachycardic. Abdomen soft. Psych is mentioned above. Skin negative. Neuro negative. HEENT negative. Cardiovascular lungs are clear. HEENT is normal. She is admitted for threatening behavior. CT abdomen and pelvis negative. ASSESSMENT: Polysubstance abuse causing more delusional feelings and making psychiatric issues worse. Schizoaffective, anxiety, depression. Wait for Psych to evaluate. Medically she appears to be clear. Borderline TSH. Order a T4, T3. MMODL / IJN: [id number] /
--- NOTE | 2021-03-31 16:15 | P.HP ---
Psychiatric H&P - . H&P Date: 03/31/21 History & Physical: Allergies Allergy/AdvReac Type Severity Reaction Status Date / Time cat dander Allergy Rash/Hives Verified 03/30/21 22:49 Vital Signs Temp 96.7 F L 03/31/21 03:27 Pulse 69 03/31/21 03:27 Resp 16 03/31/21 03:27 BP 119/67 03/31/21 03:27 Pulse Ox 98 03/31/21 03:27 Intake & Output 03/30/21 03/31/21 03/31/21 18:59 06:59 18:59 Weight 63.503 kg Laboratory Last Values Urine Opiates Screen Not Detected (NotDetected) 03/30/21 21:05 Ur Oxycodone Screen Not Detected (NotDetected) 03/30/21 21:05 Urine Methadone Screen Not Detected (NotDetected) 03/30/21 21:05 Ur Propoxyphene Screen Not Detected (NotDetected) 03/30/21 21:05 Ur Barbiturates Screen Not Detected (NotDetected) 03/30/21 21:05 U Tricyclic Antidepress Not Detected (NotDetected) 03/30/21 21:05 Ur Phencyclidine Scrn Not Detected (NotDetected) 03/30/21 21:05 Ur Amphetamines Screen Detected (NotDetected) H 03/30/21 21:05 U Methamphetamines Scrn Detected (NotDetected) H 03/30/21 21:05 U Benzodiazepines Scrn Not Detected (NotDetected) 03/30/21 21:05 Urine Cocaine Screen Not Detected (NotDetected) 03/30/21 21:05 U Marijuana (THC) Screen Detected (NotDetected) H 03/30/21 21:05 Coronavirus (PCR) Not Detected (Not Detectd) 03/30/21 21:05 03/31/21 16:02 psychiatry H/P: This 30- yr old famale was admitted initially to Medicine for medical evaluation prior to being transfered to psychiatric unit for stabilization and treatment. He was petitioned for admission on account of her worsening psychotic symptoms. We do not have previous psychiatric history. I attempted to interview the patient who was lying in bed fast asleep. She could be aroused but apparently did not want to cooperative with the partial psychiatric evaluation. I ifnormed her that I would attemtp again tomorrow Apr 01 2020. Chief Complaint; Paranoid bizzare thoughts HPI> the history was obtained through the medical notes. Apparently she endorsed beizzare disturbances of having her identity stolen. She was highly impulsive and was unaware of the risk involved. [facility], she has been abusing CRYSTAL METH and amphetamine. most likely she obtained from the "streets". She did not have history of ADHD . Upon admisson, she was highly agitated exhibiting delusional thinking. She has marginal insight into her psychiatric condition. 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 This may not be the index psychosis admission Past medical history. non-contributory towards her current presentation psycho-social history: unable to obtain MSE: Unable to conduct . She refused to cooperative and respond to brief questions. Affect: appeared to be blunted. congruent with thought content. Guarded and constricted range of affect. Thought and peceptional disturbances; Unable to elicit symptoms. Cognition; She appreared to be oriented. marginal insight into her condition. 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 rule out schizoaffective disorder Management: start on antipsychotic olanzapine. Reassess her MSE. Engage pt towards recovery focus treatment and milieu therapy. Connect with family and support She would require inpatient stabilizatoin
[2021-03-31] MEDS: OLANZapine 7.5 MG TAB PO SCH ×2 (16:25→21:00)
[2021-04-01 07:45] LABS: Basophils # (A) 0.1 k/uL (0-0.2); Basophils % (A) 1 %; Eosinophils # (A) 0.1 k/uL (0-0.7); Eosinophils % (A) 2 %; HCT 44.8 % (34.0-46.0); HGB 14.8 gm/dL (11.4-16.0); Lymphocytes % (A) 29 %; MCH 30.7 pg (25.0-35.0); MCHC 33.1 g/dL (31.0-37.0); MCV 92.7 fL (80.0-100.0); Mean Platelet Volume 6.9; Monocytes # (A) 0.3 k/uL (0-1.0); Monocytes % (A) 4 %; Neutrophils # (A) 4.1 k/uL (1.3-7.7); Neutrophils % (A) 62 %; Platelet Count 239 k/uL (150-450); RBC 4.83 m/uL (3.80-5.40); WBC 6.7 k/uL (3.8-10.6)
[2021-04-01 07:58] LABS: ALT 21 U/L (4-34); AST 29 U/L (14-36); African American GFR (CKD) >90 (>60 ml/min/1.73 sqM); Albumin 4.2 g/dL (3.5-5.0); Alkaline Phosphatase 47 U/L (38-126); Anion Gap 11 mmol/L; Blood Urea Nitrogen 21 mg/dL (7-17); Carbon Dioxide 22 mmol/L (22-30); Chloride 109 mmol/L (98-107); Glucose 58 mg/dL (74-99); Non-African American GFR(CKD) >90 (>60 ml/min/1.73 sqM); Potassium 3.8 mmol/L (3.5-5.1); Sodium 142 mmol/L (137-145); Total Bilirubin 0.9 mg/dL (0.2-1.3); Total Protein 6.6 g/dL (6.3-8.2)
[2021-04-01 08:12] LABS: T4, Free (Free Thyroxine) 1.37 ng/dL (0.78-2.19)
[2021-04-01] MEDS: OLANZapine 7.5 MG TAB PO SCH ×2 (09:40→21:32)
[2021-04-01] MEDS: NICOTINE 14MG/24HR PATCH TRANSDERM SCH (09:42)
[2021-04-01 11:07] LABS: Chol/HDL Ratio 2.64 Ratio; LDL Cholesterol,Calculated 65.9 mg/dL (0.0-131.0); VLDL Calculation 15.36 mg/dL (5.00-40.00)
--- NOTE | 2021-04-01 18:57 | P.PN ---
Subjective Progress Note Date: 04/01/21 Principal diagnosis: Progress note She was assessed yesterday refusing to be admitted on a voluntary basis. She did not want to take any medication and denied she ever had any mental disroder. She was later on foudn to be uttering some "f" words in a highly defiant manner. Affect. Highly guarded congruent with thought content. She was negligent in her self-care at times and spent time in her bed refusing to have any social interaction with peers or the staff Paranoid ideas of reference Query hallucinations. No suicidal or homicideal ideations Cog;Oriented , absent insight in her condition Diagnosis [place] acute psychosis . Management Plan certify. providing for safety. Inpatient hospitalization mandatory . medication psychoeudcation continued . Monitor fluid and food intake Objective - Vital Signs Vital signs: Vital Signs Temp 96.7 F L 03/31/21 03:27 Pulse 69 03/31/21 03:27 Resp 16 03/31/21 03:27 BP 119/67 03/31/21 03:27 Pulse Ox 98 03/31/21 03:27 - Labs CBC & Chem 7: 04/01/21 07:03 04/01/21 07:03 Labs: Abnormal Lab Results - Last 24 Hours (Table) 04/01/21 Range/Units 07:03 Chloride 109 H (98-107) mmol/L BUN 21 H (7-17) mg/dL Glucose 58 L (74-99) mg/dL
[2021-04-02] MEDS: OLANZapine 7.5 MG TAB PO SCH (10:16)
[2021-04-02] MEDS: NICOTINE 14MG/24HR PATCH TRANSDERM SCH ×3 (10:16→20:40)
--- NOTE | 2021-04-02 12:58 | P.PN ---
Progress Note - Text Progress Note Date: 04/02/21 Interval History: Patient was seen resting in bed and was directable and agreeable to speak with lyric writer in the office. The patient is a poor historian events leading up to this hospitalization. The patient states that she is very upset at whoever petitioned her. She does express that it was not her mother but somebody else. She is quite disorganized and is difficult to follow the history that she is providing. She continues to display significant mood lability and appears to be easily agitated. She is denying any suicidal or homicidal ideation, intention, and/or plan. She is not reporting any auditory or visual hallucinations. The patient was upset that she is admitted involuntarily and this provider discussed the reasons why. The patient then terminated the interview. She did refuse Zyprexa last night and this morning. Mental Status Exam: General Appearance: Patient appears to be stated age is alert, difficult to direct, and intermittently cooperative. Behavior: Elevated psychomotor activity is evident. Eye contact is intense. Speech: Patient's speech is fluent, spontaneous, and slightly pressured. Mood/Affect: Mood is "confused." Affect is angry and annoyed. Suicidality/Homicidality: Patient denies having any suicidal or homicidal ideation intent or plan. Perceptions: Patient denies any visual hallucinations and denies any auditory hallucinations Though content/process: The patient history appears to be disorganized at this time. Difficult to follow. Memory and concentration: AOX3, grossly intact for the purposes of this session Judgment and insight: Improving mildly as she is alert and oriented to person, place, and time. 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 The patient has been petitioned and certified. -Medications: Increase Zyprexa to 10 mg by mouth twice a day for acute psychosis -When necessary Ativan and Haldol for agitation/aggression. -NRT - nicotine patch -SW on board for discharge planning. Encouraged the patient to participate in milieu.
[2021-04-02] MEDS: OLANZapine 10 MG TAB PO SCH (20:40)
[2021-04-03] MEDS: NICOTINE 14MG/24HR PATCH TRANSDERM SCH (08:37)
[2021-04-03] MEDS: ACETAMINOPHEN TAB 325 MG TAB PO PRN (08:37)
[2021-04-03] MEDS: OLANZapine 10 MG TAB PO SCH ×2 (08:37→23:47)
[2021-04-03] MEDS ORDERED: chlorproMAZINE 25 MG/ML 2 ML AMP IM PRN (10:48)
[2021-04-03] MEDS ORDERED: chlorproMAZINE 25 MG TAB PO PRN (10:48)
[2021-04-03] MEDS ORDERED: LORazepam 2 MG/ML INJ IM PRN (10:49)
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
[2021-04-04] MEDS: NICOTINE 14MG/24HR PATCH TRANSDERM SCH ×2 (08:07→09:45)
[2021-04-04] MEDS: LORazepam 1 MG TAB PO PRN ×2 (08:08→20:02)
[2021-04-04] MEDS: OLANZapine 10 MG TAB PO SCH (08:15)
--- NOTE | 2021-04-04 10:27 | P.PN ---
Progress Note - Text Progress Note Date: 04/04/21 Interval History: Patient was seen sitting in the hallway and was directable and agreeable to speak with the racebook writer in her room. Currently, the patient continues to be very labile and paranoid. She expresses that she does not require inpatient psychiatric hospitalization and continues to display some gross disorganization on the events leading up to this hospitalization. She does admit that she has been previously diagnosed with schizoaffective disorder. She was however unable to recall seeing this physician yesterday and was reminded of her outbursts stating that she was the doctor and that the B[employer] is controlling everything. The patient then becomes very agitated when reminded of this and begins to hyperventilate but was able to de-escalate. The patient expresses that she will take medications however refused her medications this morning. She continues to demand for discharge. She is not endorsing any suicidal or homicidal ideation, intention, and/or plan. She denies any auditory or visual hallucinations. She continues to be paranoid and endorsing bizarre delusions. Mental Status Exam: General Appearance: Patient appears to be stated age is alert, difficult to direct, and intermittently cooperative Behavior: Elevated psychomotor activity is evident. Eye contact is intense. Psychomotor agitation is evident Speech: Patient's speech is fluent, pressured, loud. Mood/Affect: Mood is "angry" Affect is angry and labile. Suicidality/Homicidality: Denies Perceptions: Denies Though content/process: The patient is grossly disorganized and is endorsing numerous bizarre delusional thought content. Flight of ideas is evident. Paranoid. Memory and concentration: Grossly poor. Judgment and insight: Very poor. Vital Signs Temp 97.4 F L 04/04/21 08:14 Pulse 148 H 04/04/21 09:49 Resp 16 04/04/21 08:14 BP 131/81 04/04/21 09:49 Pulse Ox 98 03/31/21 03:27 Assessment Schizoaffective disorder, bipolar type Plan: -Patient continues to meet criteria for inpatient psychiatric admission for symptom stabilization and safety. The patient has been petitioned and certified. -We will get an EKG to the patient's tachycardia. -Medications: Discontinue Zyprexa and start Risperdal 1 mg by mouth twice a day with plans to transition the patient to a long-acting injectable medication. -When necessary Ativan and Thorazine for agitation/aggression. -NRT - nicotine patch -SW on board for discharge planning. Encouraged the patient to participate in milieu.
[2021-04-04] MEDS: LORATADINE 10 MG TAB PO SCH (20:02)
[2021-04-04] MEDS: risperiDONE 1 MG TAB PO SCH (20:02)
[2021-04-05] MEDS: risperiDONE 1 MG TAB PO SCH (07:56)
[2021-04-05] MEDS: NICOTINE 14MG/24HR PATCH TRANSDERM SCH (07:56)
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
[2021-04-05] MEDS ORDERED: LORazepam 2 MG/ML INJ IM STA (11:32)
[2021-04-05] MEDS ORDERED: diphenhydrAMINE 50 MG/ML 1 ML VIAL IM PRN (11:33)
[2021-04-05] MEDS ORDERED: chlorproMAZINE 25 MG/ML 2 ML AMP IM PRN (11:34)
[2021-04-05] MEDS ORDERED: chlorproMAZINE 25 MG TAB PO PRN (11:34)
[2021-04-05] MEDS ORDERED: diphenhydrAMINE 50 MG CAP PO STA (11:40)
[2021-04-05] MEDS ORDERED: chlorproMAZINE 25 MG TAB PO STA (11:41)
[2021-04-05] MEDS: LORazepam 1 MG TAB PO PRN ×2 (11:47→20:50)
[2021-04-05] MEDS: risperiDONE 2 MG TAB PO SCH (20:04)
[2021-04-05] MEDS: LORATADINE 10 MG TAB PO SCH (20:04)
[2021-04-05] MEDS ORDERED: DIVALPROEX ER 500 MG TAB.ER.24H PO SCH (21:00)
[2021-04-05 21:31] LABS: Amorphous Sediment,Urine Moderate /hpf; Appearance,Urine Cloudy (Clear); Bilirubin,Urine Negative (Negative); Blood,Urine Negative (Negative); Color,Urine Yellow; Glucose,Urine (UA) Negative (Negative); Ketones,Urine Negative (Negative); Leukocyte Esterase,Urine Negative (Negative); Nitrite,Urine Negative (Negative); Protein,Urine Negative (Negative); RBC,Urine 2 /hpf (0-5); Specific Gravity,Urine 1.021 (1.001-1.035); Squamous Epithelial Cell,Urine <1 /hpf (0-4); Urobilinogen,Urine <2.0 mg/dL (<2.0)
[2021-04-06] MEDS: risperiDONE 2 MG TAB PO SCH (08:39)
[2021-04-06] MEDS: NICOTINE 14MG/24HR PATCH TRANSDERM SCH ×2 (08:39→09:07)
[2021-04-06] MEDS: LORazepam 1 MG TAB PO PRN ×2 (09:06→15:25)
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
[2021-04-06] MEDS: LORATADINE 10 MG TAB PO SCH (19:55)
[2021-04-06] MEDS: risperiDONE 1 MG TAB PO SCH (19:55)
[2021-04-06] MEDS ORDERED: risperiDONE 1 MG TAB PO SCH (21:00)
[2021-04-07] MEDS: risperiDONE 1 MG TAB PO SCH ×2 (08:25→20:26)
[2021-04-07] MEDS: NICOTINE 14MG/24HR PATCH TRANSDERM SCH ×2 (08:25→14:06)
[2021-04-07] MEDS ORDERED: risperiDONE 2 MG TAB PO SCH (09:00)
[2021-04-07] MEDS: LORATADINE 10 MG TAB PO SCH (11:00)
--- NOTE | 2021-04-07 13:35 | P.PN ---
Progress Note - Text Progress Note Date: 04/07/21 Interval History: Patient was seen in her room and was directable and agreeable to speak with senior grant writer . Patient is sobbing and crying and isolating herself from other peers. She stated she likes to be discharged. She stated she feels groggy but I did not notice any drowsiness. She was just laying on the mattress because no sheets. Her grooming is poor.. At this time patient denies any suicidal or homical ideations, intent or plan. Patient denies any auditory, visual h allucinations and denies any paranoia or delusions. Patient denies any side effects from the medications and has been compliant with meds. Mental Status Exam: General Appearance: Patient appears to be stated age is alert, directable, and cooperative. Behavior: Patient is calmly seated without any agitated behavior. Speech: Patient's speech is fluent and nonpressured. Mood/Affect: Mood is improving mildly, affect is congruent and constricted. Suicidality/Homicidality: Patient denies having any suicidal or homicidal ideation intent or plan. Perceptions: Patient denies any visual hallucinations and denies any auditory hallucinations Though content/process: There is no evidence of any delusional thought content and thought process is linear and goal-directed. Memory and concentration: AOX3, grossly intact for the purposes of this session Judgment and insight: Improving mildly Assessment This patient continues to show ongoing symptoms of psychosis necessitating continued hospitalization Plan: -Patient continues to meet criteria for inpatient psychiatric admission for symptom stabilization and safety. -Medications: Continue medications as before. -When necessary Ativan and Haldol for agitation/aggression. -SW on board for discharge planning. Encouraged the patient to participate in milieu.
[2021-04-08] MEDS: risperiDONE 1 MG TAB PO SCH ×2 (07:49→20:13)
[2021-04-08] MEDS: NICOTINE 14MG/24HR PATCH TRANSDERM SCH ×2 (08:12→15:24)
[2021-04-08 10:18] LABS: Glucose,Whole Blood 91 mg/dL (75-99)
--- NOTE | 2021-04-08 11:32 | P.PN ---
Progress Note - Text Progress Note Date: 04/08/21 Interval History: Patient was seen in her room and was directable and agreeable to speak with instructional writer. This patient is still preoccupied with the discharge. She is sleeping on the bed with no bed sheets. She is isolative and has spontaneous crying spells. Her affect is constricted and she does not make any eye contact.. At this time patient denies any suicidal or homical ideations, intent or plan. Patient denies any auditory, visual hallucinations and denies any paranoia or delusions. Patient denies any side effects from the medications and has been compliant with meds. Mental Status Exam: General Appearance: Patient appears to be stated age is alert, directable, and cooperative. Behavior: Patient is calmly seated without any agitated behavior. Speech: Patient's speech is fluent and nonpressured. Mood/Affect: Mood is improving mildly, affect is congruent and constricted. Suicidality/Homicidality: Patient denies having any suicidal or homicidal ideation intent or plan. Perceptions: Patient denies any visual hallucinations and denies any auditory hallucinations Though content/process: There is no evidence of any delusional thought content and thought process is linear and goal-directed. Memory and concentration: AOX3, grossly intact for the purposes of this session Judgment and insight: Improving mildly Assessment Patient continues to show symptoms of psychosis and has no insight into her problems. She necessitates continued hospitalization to address those symptoms. Plan: -Patient continues to meet criteria for inpatient psychiatric admission for symptom stabilization and safety. -Medications: Continue medication as before. -When necessary Ativan and Haldol for agitation/aggression. -SW on board for discharge planning. Encouraged the patient to participate in milieu.
[2021-04-08] MEDS: LORazepam 1 MG TAB PO PRN (15:25)
[2021-04-08] MEDS: LORATADINE 10 MG TAB PO SCH (20:13)
[2021-04-09] MEDS: risperiDONE 1 MG TAB PO SCH (07:48)
[2021-04-09] MEDS: NICOTINE 14MG/24HR PATCH TRANSDERM SCH (07:48)
[2021-04-09] MEDS: ACETAMINOPHEN TAB 325 MG TAB PO PRN (09:12)
[2021-04-09 12:54] VITALS: BMI 17.7
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
[2021-04-09] MEDS: LORazepam 1 MG TAB PO PRN (14:29)
[2021-04-09] MEDS ORDERED: DIVALPROEX ER 500 MG TAB.ER.24H PO SCH (21:00)
[2021-04-09] MEDS: LORATADINE 10 MG TAB PO SCH (21:18)
[2021-04-10] MEDS: NICOTINE 14MG/24HR PATCH TRANSDERM SCH (08:35)
[2021-04-10] MEDS: LORazepam 1 MG TAB PO PRN ×2 (09:30→15:02)
[2021-04-10] MEDS ORDERED: flUPHENAZine 2.5 MG/ML (MDV) 10 ML VIAL IM PRN (11:42)
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
[2021-04-10] MEDS: ACETAMINOPHEN TAB 325 MG TAB PO PRN (19:16)
[2021-04-10] MEDS: LORATADINE 10 MG TAB PO SCH ×2 (21:47→21:51)
[2021-04-10] MEDS: DIVALPROEX ER 250 MG TAB.ER.24H PO SCH ×2 (21:47→21:50)
[2021-04-11] MEDS: NICOTINE 14MG/24HR PATCH TRANSDERM SCH (08:22)
[2021-04-11] MEDS: LORazepam 1 MG TAB PO PRN ×2 (08:24→13:43)
[2021-04-11] MEDS: ACETAMINOPHEN TAB 325 MG TAB PO PRN (09:53)
--- NOTE | 2021-04-11 11:04 | P.PN ---
Progress Note - Text Progress Note Date: 04/11/21 Interval History: Patient was seen sitting in the hallway and was directable and agreeable to speak with the web content writer in the office. Patient reports that she feels embarrassed about her actions when she was first admitted to the psychiatric unit. The patient is currently not reporting any suicidal or homicidal ideation, intention,/or plan. She is not reporting any auditory or visual hallucinations. She denies any paranoia or delusions. The patient has been adherent to medications and is not endorsing any significant side effects at this time. She does acknowledge that she has court today. She is agreeing to the treatment plan thus far. Mental Status Exam: General Appearance: Patient appears to be stated age is alert, directable, and cooperative Behavior: Eye contact is appropriate. Psychomotor activity appears normal today. Speech: Patient's speech is fluent, spontaneous, with normal rate and volume. Much more linear and logical. Mood/Affect: Mood is "a little tired but better" Affect is congruent and remorseful. Suicidality/Homicidality: Denies Perceptions: Denies Though content/process: Thought process appears to be more linear and logical today. No delusional thought content endorsed today. Memory and concentration: Mildly improving Judgment and insight: Mildly improving Vital Signs Temp 98.6 F 04/10/21 06:20 Pulse 89 04/10/21 06:20 Resp 14 04/10/21 06:20 BP 108/67 04/10/21 06:20 Pulse Ox 99 04/07/21 07:12 Assessment Schizoaffective disorder, bipolar type Plan: -Patient continues to meet criteria for inpatient psychiatric admission for symptom stabilization and safety. The patient has been petitioned and certified. Patient is scheduled for court today. We will await court order paperwork. -Medications: We will continue Prolixin to 2 mg in the morning and 3 mg at bedtime for management of acute psychosis and mood stabilization Continue Depakote 750 mg by mouth at bedtime for mood stabilization. -When necessary Ativan and Prolixin for agitation/aggression. -NRT - nicotine patch -SW on board for discharge planning. Encouraged the patient to participate in milieu.
[2021-04-11] MEDS: LORATADINE 10 MG TAB PO SCH (20:10)
[2021-04-11] MEDS: DIVALPROEX ER 250 MG TAB.ER.24H PO SCH (20:11)
[2021-04-12 07:03] VITALS: RESP 16; TEMP 98.1
[2021-04-12] MEDS: ACETAMINOPHEN TAB 325 MG TAB PO PRN ×2 (07:21→16:06)
[2021-04-12 08:00] LABS: Glucose,Whole Blood 80 mg/dL (75-99)
[2021-04-12] MEDS: NICOTINE 14MG/24HR PATCH TRANSDERM SCH (08:51)
[2021-04-12] MEDS ORDERED: fluPHENAZine DECANOATE 25 MG/ML 5ML MDV IM ONE (09:45)
--- NOTE | 2021-04-12 10:19 | P.PN ---
Progress Note - Text Progress Note Date: 04/12/21 Interval History: Patient was seen sitting in the hallway and was directable and agreeable to speak with the bond underwriter in the office. Patient is currently not reporting any significant issues at this time except for elevated anxiety. The patient has been adherent with her medications and is not reporting any significant side effects. She denies any suicidal or homicidal ideation, intention, and/or plan. She denies any auditory or visual hallucinations. She reports no paranoia or other delusions. The patient has been adherent with her medications and is not reporting any significant side effects. She is agreeable to receiving the Prolixin Decanoate today. Depakote levels were reviewed and within therapeutic range. Mental Status Exam: General Appearance: Patient appears to be stated age is alert, directable, and cooperative Behavior: Eye contact is appropriate. Psychomotor activity appears normal today. Speech: Patient's speech is fluent, spontaneous, with normal rate and volume. Much more linear and logical. Mood/Affect: Mood is "just a little nervous." Affect is congruent but otherwise euthymic. Suicidality/Homicidality: Denies Perceptions: Denies Though content/process: Thought process appears to be more linear and logical today. No delusional thought content endorsed today. Memory and concentration: Mildly improving Judgment and insight: Mildly improving Vital Signs Temp 98.1 F 04/12/21 06:31 Pulse 110 H 04/12/21 06:31 Resp 16 04/12/21 06:31 BP 122/81 04/12/21 06:31 Pulse Ox 98 04/12/21 06:31 Laboratory Results - Last 24 Hours 04/12/21 04/12/21 06:53 07:48 POC Glucose (mg/dL) 80 POC Glu [employer] Door Greeter ID Saskia Faulkner Valproic Acid 51.4 Assessment Schizoaffective disorder, bipolar type Plan: -Patient continues to meet criteria for inpatient psychiatric admission for symptom stabilization and safety. The patient has been petitioned and certified. Patient is now court ordered for mental health treatment. -Medications: We'll administer Prolixin Decanoate 12.5 mg IM every 3 weeks today. Continue Depakote 750 mg by mouth at bedtime for mood stabilization. -When necessary Ativan and Prolixin for agitation/aggression. -NRT - nicotine patch -SW on board for discharge planning. Encouraged the patient to participate in milieu.
[2021-04-12] MEDS: LORazepam 1 MG TAB PO PRN (10:48)
[2021-04-12] MEDS: DIVALPROEX ER 250 MG TAB.ER.24H PO SCH (20:45)
[2021-04-12] MEDS: LORATADINE 10 MG TAB PO SCH (20:46)
[2021-04-13 06:46] VITALS: BP 117/77; PULSE 112
[2021-04-13] MEDS: NICOTINE 14MG/24HR PATCH TRANSDERM SCH (07:43)
[2021-04-13] MEDS: LORazepam 1 MG TAB PO PRN (10:31)
--- NOTE | 2021-04-13 11:27 | P.DS ---
Providers Date of admission: 03/31/21 01:25 Expected date of discharge: 04/13/21 Attending physician: Teo Hernandez MD Consults: 03/31/21 01:36 Consult Physician Routine Consulting Provider: Lorenzo Singh Consult Reason/Comments: health physical Do you want consulting provider notified?: Yes, Notify in am Primary care physician: Lorenzo Singh - Discharge Diagnosis(es) (1) Schizoaffective disorder, bipolar type Current Visit: Yes Status: Acute Priority: High (2) Methamphetamine abuse Current Visit: Yes Status: Chronic Priority: Medium (3) Nicotine dependence Current Visit: Yes Status: Chronic Priority: Medium Hospital Course: Admission HPI: Initial psychiatric evaluation was completed by Dr. Lindo on 03/31/2021 who wrote: "This 30- yr old famale was admitted initially to Medicine for medical evaluation prior to being transfered to psychiatric unit for stabilization and treatment. He was petitioned for admission on account of her worsening psychotic symptoms. We do not have previous psychiatric history. I attempted to interview the patient who was lying in bed fast asleep. She could be aroused but apparently did not want to cooperative with the partial psychiatric evaluation. I ifnormed her that I would attemtp again tomorrow Apr 01 2020. Chief Complaint; Paranoid bizzare thoughts HPI> the history was obtained through the medical notes. Apparently she endorsed beizzare disturbances of having her identity stolen. She was highly impulsive and was unaware of the risk involved. On [facility], she has been abusing CRYSTAL METH and amphetamine. most likely she obtained from the "streets". She did not have history of ADHD . Upon admisson, she was highly agitated exhibiting delusional thinking. She has marginal insight into her psychiatric condition. She was triaged and attempt to interveiw her was unsuccessful." Hospital course: Upon admission to the unit patient was initially was noted to be guarded and displayed a constricted range of affect. Patient was initially started on Zyprexa however was intermittently adherent to medication. Due to her acute psychosis and her inability to cooperate with treatment, the patient was subsequently petitioned and certified. The patient continued to display significant symptoms of psychosis including extreme paranoia, believing that the "[employer] and the judges are placing masks on everybody." The patient required the administration of when necessary Thorazine in order to calm down multiple times while on the unit. Eventually, the patient was transitioned to Risperdal with the hopes to transition her to a long-acting injectable medication. Initially, the patient displayed improvement with this medication however she continued to have episodes of psychosis which were severe. She would become very paranoid and very labile. She even took a crayon and maria elena all over the peterson of the psychiatric unit. Eventually, the patient was transition to Prolixin as he felt that Risperdal was not addressing her psychotic symptoms despite being at a relatively high dose. The patient has been adherent with her medications and displayed significant improvement in regards to her mood and thought disorder. The patient did attend mental health court and was subsequently court ordered for mental health treatment. As the patient despite significant improvement with the Prolixin and Depakote, the patient was transition to Prolixin decanoate. While on this regimen, the patient displayed significant improvement and was no longer manic. On the day of discharge, the patient is not reporting any suicidal or homicidal ideation, intention, and/or plan. She is denying any access to firearms or other weapons. She is not reporting any auditory or visual hallucinations. She is alert and oriented in all spheres. The patient was counseled at length on the importance of medication adherence and appropriate outpatient follow-up. Furthermore, the patient does have significant history of methamphetamine abuse and was consequently on the importance of abstaining from all substances including alcohol, marijuana, and especially methamphetamines. Prior to discharge, family meeting will be arranged by social sciences lecturer to answer any questions and ensure safety. As the p atient displayed a normal affect and was eating and sleeping well and not overtly psychotic or manic, she was subsequently discharged. Mental status exam: General Appearance: Patient appears to be stated age is alert, pleasant, friendly, and cooperative. Patient is in no acute distress and has fair hygiene and grooming. Multiple tattoos. Behavior: Patient is calmly seated without any agitated behavior. Psychomotor activity appears normal. Speech: Patient's speech is fluent and nonpressured. Mood/Affect: Patient reports their mood is "I am feeling a lot of clarity", affect is congruent and euthymic to bright. Suicidality/Homicidality: Patient denies having any suicidal or homicidal ideation intent or plan. Perceptions: Patient denies any auditory or visual hallucinations. Though content/process: There is no evidence of any delusional thought content and thought process is linear and goal-directed. Patient is future oriented. Memory and concentration: AOX3, grossly intact for the purposes of this session. Can spell "WORLD" backwards correctly. Judgment and insight: Improved with guarded prognosis Vital Signs Temp 98.1 F 04/13/21 06:25 Pulse 112 H 04/13/21 06:25 Resp 16 04/13/21 06:25 BP 117/77 04/13/21 06:25 Pulse Ox 100 04/13/21 06:25 Laboratory Results WBC 6.7 k/uL (3.8-10.6) 04/01/21 07:03 RBC 4.83 m/uL (3.80-5.40) 04/01/21 07:03 Hgb 14.8 gm/dL (11.4-16.0) 04/01/21 07:03 Hct 44.8 % (34.0-46.0) 04/01/21 07:03 MCV 92.7 fL (80.0-100.0) 04/01/21 07:03 MCH 30.7 pg (25.0-35.0) 04/01/21 07:03 MCHC 33.1 g/dL (31.0-37.0) 04/01/21 07:03 RDW 13.0 % (11.5-15.5) 04/01/21 07:03 Plt Count 239 k/uL (150-450) 04/01/21 07:03 MPV 6.9 04/01/21 07:03 Neutrophils % 62 % 04/01/21 07:03 Lymphocytes % 29 % 04/01/21 07:03 Monocytes % 4 % 04/01/21 07:03 Eosinophils % 2 % 04/01/21 07:03 Basophils % 1 % 04/01/21 07:03 Neutrophils # 4.1 k/uL (1.3-7.7) 04/01/21 07:03 Lymphocytes # 2.0 k/uL (1.0-4.8) 04/01/21 07:03 Monocytes # 0.3 k/uL (0-1.0) 04/01/21 07:03 Eosinophils # 0.1 k/uL (0-0.7) 04/01/21 07:03 Basophils # 0.1 k/uL (0-0.2) 04/01/21 07:03 Sodium 142 mmol/L (137-145) 04/01/21 07:03 Potassium 3.8 mmol/L (3.5-5.1) 04/01/21 07:03 Chloride 109 mmol/L (98-107) H 04/01/21 07:03 Carbon Dioxide 22 mmol/L (22-30) 04/01/21 07:03 Anion Gap 11 mmol/L 04/01/21 07:03 BUN 21 mg/dL (7-17) H 04/01/21 07:03 Creatinine 0.83 mg/dL (0.52-1.04) 04/01/21 07:03 Est GFR (CKD-EPI)AfAm >90 (>60 ml/min/1.73 sqM) 04/01/21 07:03 Est GFR (CKD-EPI)NonAf >90 (>60 ml/min/1.73 sqM) 04/01/21 07:03 Glucose 58 mg/dL (74-99) L 04/01/21 07:03 POC Glucose (mg/dL) 80 mg/dL (75-99) 04/12/21 07:48 POC Glu Healthcare Specialist ID Saskia Faulkner 04/12/21 07:[address] Glu mg/dL 110 04/01/21 07:03 Hemoglobin A1c 5.5 % (0.0-6.0) 04/01/21 07:03 Calcium 9.0 mg/dL (8.4-10.2) 04/01/21 07:03 Total Bilirubin 0.9 mg/dL (0.2-1.3) 04/01/21 07:03 AST 29 U/L (14-36) 04/01/21 07:03 ALT 21 U/L (4-34) 04/01/21 07:03 Alkaline Phosphatase 47 U/L (38-126) 04/01/21 07:03 Total Protein 6.6 g/dL (6.3-8.2) 04/01/21 07:03 Albumin 4.2 g/dL (3.5-5.0) 04/01/21 07:03 Triglycerides 76.80 mg/dL (0.00-149.00) 04/01/21 07:03 Cholesterol 131.00 mg/dL (0.00-200.00) 04/01/21 07:03 LDL Cholesterol, Calc 65.9 mg/dL (0.0-131.0) 04/01/21 07:03 VLDL Cholesterol, Calc 15.36 mg/dL (5.00-40.00) 04/01/21 07:03 HDL Cholesterol 49.70 mg/dL (40.00-60.00) 04/01/21 07:03 Cholesterol/HDL Ratio 2.64 Ratio 04/01/21 07:03 TSH 0.640 mIU/L (0.465-4.680) 04/01/21 07:03 Free T4 1.37 ng/dL (0.78-2.19) 04/01/21 07:03 Free T3 pg/mL 3.0 pg/ml (2.8-5.3) 04/01/21 07:03 Urine Color Yellow 04/05/21 21:00 Urine Appearance Cloudy (Clear) H 04/05/21 21:00 Urine pH 7.0 (5.0-8.0) 04/05/21 21:00 Ur Specific [place] 1.021 (1.001-1.035) 04/05/21 21:00 Urine Protein Negative (Negative) 04/05/21 21:00 Urine Glucose (UA) Negative (Negative) 04/05/21 21:00 Urine Ketones Negative (Negative) 04/05/21 21:00 Urine Blood Negative (Negative) 04/05/21 21:00 Urine Nitrite Negative (Negative) 04/05/21 21:00 Urine Bilirubin Negative (Negative) 04/05/21 21:00 Urine Urobilinogen <2.0 mg/dL (<2.0) 04/05/21 21:00 Ur Leukocyte Esterase Negative (Negative) 04/05/21 21:00 Urine RBC 2 /hpf (0-5) 04/05/21 21:00 Ur Squamous Epith Cells <1 /hpf (0-4) 04/05/21 21:00 Amorphous Sediment Moderate /hpf (None) H 04/05/21 21:00 Urine HCG, Qual Not Detected (Not Detectd) 04/05/21 21:00 Urine Opiates Screen Not Detected (NotDetected) 03/30/21 21:05 Ur Oxycodone Screen Not Detected (NotDetected) 03/30/21 21:05 Urine Methadone Screen Not Detected (NotDetected) 03/30/21 21:05 Ur Propoxyphene Screen Not Detected (NotDetected) 03/30/21 21:05 Ur Barbiturates Screen Not Detected (NotDetected) 03/30/21 21:05 Valproic Acid 51.4 ug/mL 04/12/21 06:53 U Tricyclic Antidepress Not Detected (NotDetected) 03/30/21 21:05 Ur Phencyclidine Scrn Not Detected (NotDetected) 03/30/21 21:05 Ur Amphetamines Screen Detected (NotDetected) H 03/30/21 21:05 U Methamphetamines Scrn Detected (NotDetected) H 03/30/21 21:05 U Benzodiazepines Scrn Not Detected (NotDetected) 03/30/21 21:05 Urine Cocaine Screen Not Detected (NotDetected) 03/30/21 21:05 U Marijuana (THC) Screen Detected (NotDetected) H 03/30/21 21:05 Coronavirus (PCR) Not Detected (Not Detectd) 03/30/21 21:05 Impression: Schizoaffective disorder, bipolar type Methamphetamine abuse Nicotine dependence Plan: -Continue with discharge today as patient has improved and stabilized psychiatrically and is not currently an imminent threat to herself and/or others. Patient will remain at chronically elevated risk for harm to self and/or others due to her severity of mental illness and her substance abuse. -Continue medications: Depakote 750 mg by mouth at bedtime for mood stabilization Habitrol patches for tobacco cessation Claritin for seasonal ALLERGIES Prolixin decanoate 12.5 milligrams IM every 21 days. Last dose administered on 04/12/2021. Next dose due on . -Patient was counseled on the need for medication compliance and appropriate follow-up at mental health and also primary care for medical issues. Patient verbalized understanding and agreed. -Social work to arrange for and conduct family meeting to ensure safety upon di scharge and answer any questions/concerns. Social work also to arrange for patients follow up appointments with [facility] for psychiatric care along with follow up with primary care provider. -Patient counseled on abstaining from recreational drugs and marijuana and alcohol. Was informed/educated on the adverse effects on their physical and mental health. Patient verbally agreed and understood. Patient was offered substance abuse treatment however declined at this time. -Patient was instructed to return to the hospital or seek immediate medical care if their psychiatric or medical symptoms do worsen or reoccur. -Psychoeducation and supportive therapy provided to patient. Risks and benefits of pharmacological treatment versus the risks and benefits of nontreatment weight and discussed. Informed consent discussion held. Common side effects of psychotropics discussed such as, but not limited to headache, GI disturbance, sexual dysfunction, movement disorders, sedation, and orthostatic hypotension. Life threatening and blackbox warnings of prescribed medications also discussed. Potential risks of operating a vehicle or heavy machinery discussed with patient at length. Advised on importance of compliance and a reliable and responsible manner. Patient advised to review FDA consumer labeling of all medications prior to taking. Patient verbalized understanding of potential risks, and agrees with current treatment plan. Patient advised to medically contact physician/emergency personnel if any acute changes in condition occur. Allergies Allergy/AdvReac Type Severity Reaction Status Date / Time cat dander Allergy Rash/Hives Verified 03/30/21 22:49 Patient Condition at Discharge: Stable Plan - Discharge Summary Discharge Rx Participant: No New Discharge Prescriptions: New Divalproex ER [Depakote ER] 750 mg PO HS 30 Days tab Nicotine 14Mg/24Hr Patch [Habitrol] 1 patch TRANSDERM DAILY 30 Days patch Loratadine [Claritin] 10 mg PO HS tab fluPHENAZine decanoate [Prolixin Decanoate] 12.5 mg IM Q21D #1 each Continue Methylsulfonylmethane [MSM] 900 mg PO DAILY [place] 300mg 300 mg PO DAILY Black Seed Oil 120mg Supplement 120 mg PO BID Discharge Medication List Methylsulfonylmethane [MSM] 900 mg PO DAILY 12/17/19 [History] Black Seed Oil 120mg Supplement 120 mg PO BID 03/30/21 [History] [place] 300mg 300 mg PO DAILY 03/30/21 [History] Divalproex ER [Depakote ER] 750 mg PO HS 30 Days tab 04/13/21 [Rx] Loratadine [Claritin] 10 mg PO HS tab 04/13/21 [Rx] Nicotine 14Mg/24Hr Patch [Habitrol] 1 patch TRANSDERM DAILY 30 Days patch 04/13/21 [Rx] fluPHENAZine decanoate [Prolixin Decanoate] 12.5 mg IM Q21D #1 each 04/13/21 [Rx] Follow up Appointment(s)/Referral(s): [facility] [Outside] - 04/20/21 9:00 am (Intake) Lorenzo Singh MD [Primary Care Provider] - 1-2 days Patient Instructions/Handouts: How to Stop Smoking (DC), Psychotic Disorder (DC) Activity/Diet/Wound Care/Special Instructions: Activity and diet as tolerated. Avoid the use of street drugs and alcohol. Take all medications as prescribed. When you are in need of refills on your medications please contact your medical provider and/or outpatient psychiatrist to have this done. Please go to scheduled outpatient appointment for aftercare treatment. If symptoms return or become worse, call the crisis line at and/or go to the nearest emergency room for evaluation Discharge Disposition: HOME SELF-CARE
== END 2021-04-13 10:51 | disposition home or self-care (01) | DRG 897 ==
LOC: EC 18:34 → 3MHU 03-31 01:25
PROVIDERS: ADMIT Psychiatry & Neurology Psychiatry; ATTEND Psychiatry & Neurology Psychiatry
DX: F15.959 Other stimulant use, unspecified with stimulant-induced psychotic disorder, unspecified (principal); F25.0 Schizoaffective disorder, bipolar type; D17.5 Benign lipomatous neoplasm of intra-abdominal organs; Z20.822 Contact with and (suspected) exposure to COVID-19; R73.03 Prediabetes; F41.9 Anxiety disorder, unspecified; J30.2 Other seasonal allergic rhinitis; F17.200 Nicotine dependence, unspecified, uncomplicated; F17.290 Nicotine dependence, other tobacco product, uncomplicated; Z71.6 Tobacco abuse counseling; Z78.1 Physical restraint status; Z79.899 Other long term (current) drug therapy; Z98.891 History of uterine scar from previous surgery; Z71.41 Alcohol abuse counseling and surveillance of alcoholic; Z71.51 Drug abuse counseling and surveillance of drug abuser; Z91.048 Other nonmedicinal substance allergy status
CPT/HCPCS: 74176; 80053; 80061; 80164; 80306; 81001; 81025; 82075; 83036; 84439; 84443; 84481; 85025; 87635; 93005; 96372; 99285

== ENCOUNTER 2021-04-15 00:12 | Emergency (ER) | payer OTHER ==
[2021-04-15 00:17] VITALS: BP 132/93; PULSE 125; RESP 20; TEMP 98.3
--- NOTE | 2021-04-15 00:31 | ED ---
Psych HPI - General Chief Complaint: Psychiatric Symptoms Stated Complaint: Mental Health Time Seen by Provider: 04/15/21 00:29 Source: patient, police, RN notes reviewed, old records reviewed Mode of arrival: ambulatory Limitations: no limitations - History of Present Illness Initial Comments: This is a 30-year-old female to the ER for evaluation today. Patient presents today for evaluation of psychiatric illness patient is petition for psychiatric evaluation. Patient has history of drug abuse, she is well-known to our facility. Patient denying homicidal or suicidal thoughts currently MD Complaint: altered mental status -: unknown Associated Psychiatric Symptoms: racing thoughts, delusions Quality: intermittent, getting worse Improves With: none Worsens With: none Context: recent drug abuse, not taking psychiatric medications, significant life stressor Associated Symptoms: denies other symptoms Treatments Prior to Arrival: placed on mental health hold - Related Data Home Medications Medication Instructions Recorded Confirmed Methylsulfonylmethane [MSM] 900 mg PO DAILY 12/17/19 03/30/21 Black Seed Oil 120mg Supplement 120 mg PO BID 03/30/21 03/30/21 [place] 300mg 300 mg PO DAILY 03/30/21 03/30/21 Previous Rx's Medication Instructions Recorded Divalproex ER [Depakote ER] 750 mg PO HS 30 Days tab 04/13/21 Loratadine [Claritin] 10 mg PO HS tab 04/13/21 Nicotine 14Mg/24Hr Patch [Habitrol] 1 patch TRANSDERM DAILY 30 Days 04/13/21 patch fluPHENAZine decanoate [Prolixin 12.5 mg IM Q21D #1 each 04/13/21 Decanoate] Allergies Allergy/AdvReac Type Severity Reaction Status Date / Time cat dander Allergy Rash/Hives Verified 04/15/21 00:17 Review of Systems ROS Statement: Those systems with pertinent positive or pertinent negative responses have been documented in the HPI. ROS Other: All systems not noted in ROS Statement are negative. Past Medical History Past Medical History: No Reported History Additional Past Medical History / Comment(s): lipoma rt abdominal wall,"borderline diabetes" History of Any Multi-Drug Resistant Organisms: None Reported Past Surgical History: Section Additional Past Surgical History / Comment(s): c sections x 2 Past Anesthesia/Blood Transfusion Reactions: Postoperative Nausea & Vomiting (PONV) Additional Past Anesthesia/Blood Transfusion Reaction / Comment(s): no hx blood transfusion Past Psychological History: Anxiety, Depression, Schizoaffective Disorder Smoking Status: Former smoker, Vaper Past Alcohol Use History: None Reported, Rare Past Drug Use History: Marijuana, Methamphetamine - Past Family History Mother Family Medical History: No Reported History General Exam Limitations: no limitations General appearance: alert, in no apparent distress, anxious Head exam: Present: atraumatic, normocephalic, normal inspection Eye exam: Present: normal appearance, PERRL, EOMI. Absent: scleral icterus, conjunctival injection, periorbital swelling ENT exam: Present: normal exam, mucous membranes moist Neck exam: Present: normal inspection. Absent: tenderness, meningismus, lymphadenopathy Respiratory exam: Present: normal lung sounds bilaterally. Absent: respiratory distress, wheezes, rales, rhonchi, stridor Cardiovascular Exam: Present: normal rhythm, tachycardia, normal heart sounds. Absent: systolic murmur, diastolic murmur, rubs, gallop, clicks GI/Abdominal exam: Present: soft, normal bowel sounds. Absent: distended, tenderness, guarding, rebound, rigid Extremities exam: Present: normal inspection, full ROM, normal capillary refill. Absent: tenderness, pedal edema, joint swelling, calf tenderness Back exam: Present: normal inspection Neurological exam: Present: alert, oriented X3, CN II-XII intact Psychiatric exam: Present: normal affect, normal mood Skin exam: Present: warm, dry, intact, normal color. Absent: rash Course Vital Signs 04/15/21 00:14 Temperature 98.3 F Pulse Rate 125 H Respiratory 20 Rate Blood Pressure 132/93 O2 Sat by Pulse 99 Oximetry - Reevaluation(s) Reevaluation #1: 04/15/21 Medical record is reviewed Medical clear for psychiatric evaluation Medical Decision Making - Medical Decision Making 30 female to the emergency department seen and evaluated psychiatry here in the ER, not currently homicidal or suicidal awake and alert and can be discharged home - Lab Data Lab Results 04/15/21 04/15/21 Range/Units 01:03 01:03 Urine HCG, Qual Not Detected (Not Detectd) Urine Opiates Screen Not Detected (NotDetected) Ur Oxycodone Screen Not Detected (NotDetected) Urine Methadone Screen Not Detected (NotDetected) Ur Propoxyphene Screen Not Detected (NotDetected) Ur Barbiturates Screen Not Detected (NotDetected) U Tricyclic Antidepress Not Detected (NotDetected) Ur Phencyclidine Scrn Not Detected (NotDetected) Ur Amphetamines Screen Not Detected (NotDetected) U Methamphetamines Scrn Detected H (NotDetected) U Benzodiazepines Scrn Not Detected (NotDetected) Urine Cocaine Screen Not Detected (NotDetected) U Marijuana (THC) Screen Detected H (NotDetected) Disposition Clinical Impression: Schizoaffective disorder, bipolar type, Encounter for psychiatric assessment, Methamphetamine abuse, Psychosis Disposition: HOME SELF-CARE Condition: Fair Instructions (If sedation given, give patient instructions): Brief Psychotic Disorder (ED) Is patient prescribed a controlled substance at d/c from ED?: No Referrals: Lorenzo Singh MD [Primary Care Provider] - 1-2 days
[2021-04-15 02:16] LABS: Amphetamine Screen,Urine Not Detected (NotDetected); Barbiturate Screen,Urine Not Detected (NotDetected); Benzodiazepines Screen,Urine Not Detected (NotDetected); Cocaine Screen,Urine Not Detected (NotDetected); Methadone Screen, Urine Not Detected (NotDetected); Opiate Screen,Urine Not Detected (NotDetected); Oxycodone Screen, Urine Not Detected (NotDetected); Phencyclidine Screen,Urine Not Detected (NotDetected); Tricyclic Antidepressant,Urine Not Detected (NotDetected); Urn Cannabinoid Scrn Detected (NotDetected)
== END 2021-04-15 02:26 | disposition home or self-care (01) ==
LOC: EC 00:12
DX: F25.9 Schizoaffective disorder, unspecified (principal); F31.9 Bipolar disorder, unspecified; F15.10 Other stimulant abuse, uncomplicated; F29 Unspecified psychosis not due to a substance or known physiological condition; Z87.891 Personal history of nicotine dependence; Z91.09 Other allergy status, other than to drugs and biological substances
CPT/HCPCS: 80306; 81025; 82075; 99285

== ENCOUNTER 2021-04-17 05:05 | Inpatient (IN) | payer MEDICAID, OTHER ==
[2021-04-17] MEDS ORDERED: MAGNESIUM HYDROXIDE 2,400 MG/10 ML CUP PO PRN (09:23)
[2021-04-17] MEDS ORDERED: MAG HYDROX/AL HYDROX/SIMETH 30 ML CUP PO PRN (09:23)
[2021-04-17] MEDS: LORazepam 1 MG TAB PO PRN (10:00)
[2021-04-17] MEDS ORDERED: flUPHENAZine 2.5 MG/ML (MDV) 10 ML VIAL IM PRN (13:38)
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
[2021-04-17] MEDS: LORATADINE 10 MG TAB PO SCH (21:37)
[2021-04-17] MEDS: DIVALPROEX ER 250 MG TAB.ER.24H PO SCH (21:37)
[2021-04-18] MEDS: NICOTINE 14MG/24HR PATCH TRANSDERM SCH (08:03)
[2021-04-18] MEDS: LORazepam 1 MG TAB PO PRN (08:08)
[2021-04-18] MEDS ORDERED: NICOTINE 14MG/24HR PATCH TRANSDERM SCH (09:00)
--- NOTE | 2021-04-18 12:24 | P.PN ---
Progress Note - Text Progress Note Date: 04/18/21 Interval History: Patient was seen resting in bed and was directable and agreeable to speak with writer producer in the office., The patient is not reporting any suicidal or homicidal ideation, intention, and/or plan. She is not reporting any auditory or visual hallucinations. She is denying any paranoia or other delusions. She does endorse elevated anxiety and is agreeable to starting BuSpar today. She continues to be poor historian when sitting up the hospitalization, in pa rticular when she was admitted when using methamphetamines. She also has understanding that marijuana can also should be to worsening psychotic symptoms and an exacerbation of her schizoaffective disorder. She continues to deny the need for inpatient substance abuse rehabilitation. She is otherwise adherent with her medications and is not reporting any significant side effects this time. Mental Status Exam: General Appearance: Patient appears to be stated age is alert, directable, and cooperative. Behavior: Patient is calmly seated without any agitated behavior. Speech: Patient's speech is fluent and nonpressured. Mood/Affect: Mood is improving mildly, affect is congruent and constricted. Suicidality/Homicidality: Patient denies having any suicidal or homicidal ideation intent or plan. Perceptions: Patient denies any visual hallucinations and denies any auditory hallucinations Though content/process: There is no evidence of any delusional thought content and thought process is linear and goal-directed. 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 Patient is currently under mental health court order. -Medications: The patient last received Prolixin Decanoate 12.5 mg IM on 04/12/2021 with her next dose due on 05/03/2021. Continue Prolixin 2.5 mg by mouth twice a day for acute psychosis Continue Depakote 750 mg daily at bedtime for mood stabilization Start BuSpar 20 mg by mouth 3 times a day for anxiety -When necessary Ativan and Prolixin for agitation/aggression. -NRT - nicotine patch -SW on board for discharge planning. Encouraged the patient to participate in milieu.
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
[2021-04-18] MEDS: busPIRone HCl 10 MG TAB PO SCH ×2 (16:41→20:21)
[2021-04-18 17:05] LABS: Chol/HDL Ratio 2.69 Ratio; LDL Cholesterol,Calculated 79.8 mg/dL (0.0-131.0); VLDL Calculation 11.96 mg/dL (5.00-40.00)
[2021-04-18] MEDS: ACETAMINOPHEN TAB 325 MG TAB PO PRN (17:16)
[2021-04-18] MEDS: DIVALPROEX ER 250 MG TAB.ER.24H PO SCH (20:21)
[2021-04-18] MEDS: LORATADINE 10 MG TAB PO SCH (20:21)
[2021-04-18 20:25] VITALS: PULSE 105
[2021-04-19 07:09] VITALS: BP 131/80; RESP 16; TEMP 97.7
[2021-04-19] MEDS: busPIRone HCl 10 MG TAB PO SCH (08:12)
[2021-04-19] MEDS: NICOTINE 14MG/24HR PATCH TRANSDERM SCH (08:13)
[2021-04-19] MEDS: ACETAMINOPHEN TAB 325 MG TAB PO PRN (08:56)
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
== END 2021-04-19 14:10 | disposition home or self-care (01) | DRG 885 ==
LOC: 3MHU 08:40
PROVIDERS: ADMIT Psychiatry & Neurology Psychiatry; ATTEND Psychiatry & Neurology Psychiatry
DX: F25.0 Schizoaffective disorder, bipolar type (principal); F19.20 Other psychoactive substance dependence, uncomplicated; F15.159 Other stimulant abuse with stimulant-induced psychotic disorder, unspecified; F12.159 Cannabis abuse with psychotic disorder, unspecified; R73.03 Prediabetes; F41.9 Anxiety disorder, unspecified; Z56.0 Unemployment, unspecified; Z71.89 Other specified counseling; Z98.890 Other specified postprocedural states; F17.290 Nicotine dependence, other tobacco product, uncomplicated; Z79.899 Other long term (current) drug therapy
CPT/HCPCS: 80061; 80164; 83036; 84443

== ENCOUNTER 2023-03-02 04:19 | Inpatient (IN) | payer OTHER ==
--- NOTE | 2023-03-02 04:39 | ED ---
General Adult HPI - General Stated complaint: Hyperthermia Time Seen by Provider: 03/02/23 04:23 - History of Present Illness Initial comments: Dictation was produced using [employer] dictation software. please excuse any grammatical, word or spelling errors. Chief Complaint:32-year-old female found outside History of Present Illness: Patient 32-year-old female she was found outside. Patient is a poor story. She denies any has history of drug abuse. States that she was in an argument with her mother. She fell down some steps some point yesterday. She was brought in by EMS after a neighbor found her outside. States that she has been outside for the last 3-4 hours. EMS states the patient is hypothermic. She also is known to have a lot of bruising to her bilateral lower extremities. The ROS documented in this emergency department record has been reviewed and confirmed by me. Those systems with pertinent positive or negative responses have been documented in the HPI. All other systems are other negative and/or noncontributory. - Related Data Home Medications Medication Instructions Recorded Confirmed Methylsulfonylmethane [MSM] 900 mg PO DAILY 12/17/19 03/30/21 Black Seed Oil 120mg Supplement 120 mg PO BID 03/30/21 03/30/21 Danielson 300mg 300 mg PO DAILY 03/30/21 03/30/21 Previous Rx's Medication Instructions Recorded fluPHENAZine decanoate [Prolixin 12.5 mg IM Q21D #1 each 04/13/21 Decanoate] Divalproex ER [Depakote ER] 750 mg PO HS 30 Days tab 04/19/21 Loratadine [Claritin] 10 mg PO HS tab 04/19/21 Nicotine 14Mg/24Hr Patch [Habitrol] 1 patch TRANSDERM DAILY #0 patch 04/19/21 fluPHENAZine [Prolixin] 2.5 mg PO BID 14 Days tab 04/19/21 Allergies Allergy/AdvReac Type Severity Reaction Status Date / Time cat dander Allergy Rash/Hives Verified 03/02/23 04:35 Review of Systems ROS Statement: Those systems with pertinent positive or pertinent negative responses have been documented in the HPI. ROS Other: All systems not noted in ROS Statement are negative. Past Medical History Past Medical History: No Reported History Additional Past Medical History / Comment(s): lipoma rt abdominal wall,"borderline diabetes" History of Any Multi-Drug Resistant Organisms: None Reported Past Surgical History: Section Additional Past Surgical History / Comment(s): c sections x 2 Past Anesthesia/Blood Transfusion Reactions: Postoperative Nausea & Vomiting (PONV) Additional Past Anesthesia/Blood Transfusion Reaction / Comment(s): no hx blood transfusion Past Psychological History: Anxiety, Depression, Schizoaffective Disorder Smoking Status: Vaper, Former smoker - Past Family History Mother Family Medical History: No Reported History General Exam - General Exam Comments Initial Comments: PHYSICAL EXAM: General Impression: Alert and oriented x3, not in acute distress, shivering HEENT: Normocephalic atraumatic, extra-ocular movements intact, pupils equal and reactive to light bilaterally, mucous membranes moist. Cardiovascular: Heart regular rate and rhythm Chest: Able to complete full sentences, no retractions, no tachypnea Abdomen: abdomen soft, non-tender, non-distended, no organomegaly Musculoskeletal: Pulses present and equal in all extremities, no peripheral edema Motor: no focal deficits noted Neurological: CN II-XII grossly intact, no focal motor or sensory deficits noted Skin: Ecchymosis to the bilateral knees Psych: Normal affect and mood Course Vital Signs 03/02/23 03/02/23 04:50 06:31 Temperature 87.3 F L 96.3 F L Pulse Rate 98 98 Respiratory 18 18 Rate Blood Pressure 108/92 133/104 O2 Sat by Pulse 95 98 Oximetry Medical Decision Making - Medical Decision Making Was pt. sent in by a medical professional or institution (, PA, ETHNOARCHAEOLOGIST, urgent care, hospital, or group home...) When possible be specific @ -No Did you speak to anyone other than the patient for history (EMS, parent, family, police, friend...)? What history was obtained from this source @ -No Did you review nursing and triage notes (agree or disagree)? Why? @ -I reviewed and agree with nursing and triage notes Were old charts reviewed (outside hosp., previous admission, EMS record, old EKG, old radiological studies, urgent care reports/EKG's, group home records)? Report findings @ -No old charts were reviewed Differential Diagnosis (chest pain, altered mental status, abdominal pain women, abdominal pain men, vaginal bleeding, musculoskeletal, weakness, fever, dyspnea, syncope, headache, dizziness, GI bleed, back pain, seizure, CVA, palpatations, mental health)? @ -DDifferential Mental Health: Depression, anxiety, bipolar, psychosis, schizophrenia, borderline personality, situational depression, adjustment disorder, behavioral disorder, brain tumor, malingering, substance abuse, encephalopathy, medication reaction, dementia, hypothyroidism, degenerative neurologic disorder, lupus.... This is not meant to be all-inclusive list EKG interpreted by me (3pts min.). @ -Ventricular rate 110, sinus tachycardia, MO interval 144, QRS 92, QTc 433 X-rays interpreted by me (1pt min.). @ -Chest x-ray and bilateral knee x-ray shows no acute processes CT interpreted by me (1pt min.). @ -CT brain shows no acute processes U/S interpreted by me (1pt. min.). @ -None done What testing was considered but not performed or refused? (CT, X-rays, U/S, labs)? Why? @ -None What meds were considered but not given or refused? Why? @ -None Did you discuss the management of the patient with other professionals (professionals i.e. , PA, ETHNOARCHAEOLOGIST, lab, RT, psych nurse, mental health social worker, clinical laboratory assistant, teacher, special technical operations officer, case management manager)? Give summary @ -No Was smoking cessation discussed for >3mins.? @ -No Was critical care preformed (if so, how long)? @ -33 mins Were there social determinants of health that impacted care today? How? (Homelessness, low income, unemployed, alcoholism, drug addiction, transportation, low edu. Level, literacy, decrease access to med. care, nursing home, rehab)? @ -No Was there de-escalation of care discussed even if they declined (Discuss DNR or withdrawal of care, Hospice)? DNR status @ -No What co-morbidities impacted this encounter? (DM, HTN, Smoking, COPD, CAD, Cancer, CVA, ARF, Chemo, Hep., AIDS, mental health diagnosis, sleep apnea, m orbid obesity)? @ -None Was patient admitted / discharged? Hospital course, mention meds given and route, prescriptions, significant lab abnormalities, going to OR and other pertinent info. @ -32-year-old female presents emergency Department after being found outside. She is hypothermic upon arrival with initial temperature of 87.3 rectally. Labs otherwise unremarkable. Patient underwent rewarming measures with improvement to 96.3 temperature. Laboratory evaluation obtained. Leukocytosis 22.0 likely secondary to stress. Coag panel metabolic panel thin acceptable limits. Serum alcohol negative. Patient will be admitted for medical monitoring of hypothermia. Psychiatry consulted for mental health evaluation. Undiagnosed new problem with uncertain prognosis? @ -No Drug Therapy requiring intensive monitoring for toxicity (Heparin, Nitro, Insulin, Cardizem)? @ -No Were any procedures done? @ -No Diagnosis/symptom? Acute, or Chronic, or Acute on Chronic? Uncomplicated (without systemic symptoms) or Complicated (systemic symptoms)? @ -Hypothermia Side effects of treatment? @ -No Exacerbation, Progression, or Severe Exacerbation? @ -No Poses a threat to life or bodily function? How? (Chest pain, USA, ID, pneumonia, PE, COPD, DKA, ARF, appy, cholecystitis, CVA, Diverticulitis, Homicidal, Suicidal, threat to staff... and all critical care pts) @ -yes - Lab Data Result diagrams: 03/02/23 04:48 03/02/23 04:48 Lab Results 03/02/23 03/02/23 03/02/23 Range/Units 04:48 04:48 04:48 WBC 22.0 H (3.8-10.6) k/uL RBC 4.67 (3.80-5.40) m/uL Hgb 13.8 (11.4-16.0) gm/dL Hct 41.9 (34.0-46.0) % MCV 89.7 (80.0-100.0) fL MCH 29.5 (25.0-35.0) pg MCHC 32.9 (31.0-37.0) g/dL RDW 12.9 (11.5-15.5) % Plt Count 278 (150-450) k/uL MPV 7.0 Neutrophils % 86 % Lymphocytes % 9 % Monocytes % 3 % Eosinophils % 1 % Basophils % 1 % Neutrophils # 18.9 H (1.3-7.7) k/uL Lymphocytes # 2.0 (1.0-4.8) k/uL Monocytes # 0.7 (0-1.0) k/uL Eosinophils # 0.2 (0-0.7) k/uL Basophils # 0.1 (0-0.2) k/uL PT 10.8 (10.0-12.5) sec INR 1.0 (<1.2) APTT 21.3 L (22.0-30.0) sec Sodium (137-145) mmol/L Potassium (3.5-5.1) mmol/L Chloride (98-107) mmol/L Carbon Dioxide (22-30) mmol/L Anion Gap mmol/L BUN (7-17) mg/dL Creatinine (0.52-1.04) mg/dL Est GFR (CKD-EPI)AfAm (>60 ml/min/1.73 sqM) Est GFR (CKD-EPI)NonAf (>60 ml/min/1.73 sqM) Glucose (74-99) mg/dL Calcium (8.4-10.2) mg/dL Total Bilirubin (0.2-1.3) mg/dL AST (14-36) U/L ALT (4-34) U/L Alkaline Phosphatase (38-126) U/L Total Protein (6.3-8.2) g/dL Albumin (3.5-5.0) g/dL HCG, Quant mIU/mL Urine Opiates Screen Not Detected (NotDetected) Ur Oxycodone Screen Not Detected (NotDetected) Urine Methadone Screen Not Detected (NotDetected) Ur Barbiturates Screen Not Detected (NotDetected) U Tricyclic Antidepress Not Detected (NotDetected) Ur Phencyclidine Scrn Not Detected (NotDetected) Ur Amphetamines Screen Detected H (NotDetected) U Methamphetamines Scrn Detected H (NotDetected) U Benzodiazepines Scrn Not Detected (NotDetected) Urine Cocaine Screen Not Detected (NotDetected) U Marijuana (THC) Screen Detected H (NotDetected) Serum Alcohol mg/dL 03/02/23 Range/Units 04:48 WBC (3.8-10.6) k/uL RBC (3.80-5.40) m/uL Hgb (11.4-16.0) gm/dL Hct (34.0-46.0) % MCV (80.0-100.0) fL MCH (25.0-35.0) pg MCHC (31.0-37.0) g/dL RDW (11.5-15.5) % Plt Count (150-450) k/uL MPV Neutrophils % % Lymphocytes % % Monocytes % % Eosinophils % % Basophils % % Neutrophils # (1.3-7.7) k/uL Lymphocytes # (1.0-4.8) k/uL Monocytes # (0-1.0) k/uL Eosinophils # (0-0.7) k/uL Basophils # (0-0.2) k/uL PT (10.0-12.5) sec INR (<1.2) APTT (22.0-30.0) sec Sodium 143 (137-145) mmol/L Potassium 4.6 (3.5-5.1) mmol/L Chloride 111 H (98-107) mmol/L Carbon Dioxide 15 L (22-30) mmol/L Anion Gap 17 mmol/L BUN 20 H (7-17) mg/dL Creatinine 1.29 H (0.52-1.04) mg/dL Est GFR (CKD-EPI)AfAm 63 (>60 ml/min/1.73 sqM) Est GFR (CKD-EPI)NonAf 55 (>60 ml/min/1.73 sqM) Glucose 172 H (74-99) mg/dL Calcium 8.4 (8.4-10.2) mg/dL Total Bilirubin 0.2 (0.2-1.3) mg/dL AST 29 (14-36) U/L ALT 22 (4-34) U/L Alkaline Phosphatase 80 (38-126) U/L Total Protein 6.9 (6.3-8.2) g/dL Albumin 4.3 (3.5-5.0) g/dL HCG, Quant <2.4 mIU/mL Urine Opiates Screen (NotDetected) Ur Oxycodone Screen (NotDetected) Urine Methadone Screen (NotDetected) Ur Barbiturates Screen (NotDetected) U Tricyclic Antidepress (NotDetected) Ur Phencyclidine Scrn (NotDetected) Ur Amphetamines Screen (NotDetected) U Methamphetamines Scrn (NotDetected) U Benzodiazepines Scrn (NotDetected) Urine Cocaine Screen (NotDetected) U Marijuana (THC) Screen (NotDetected) Serum Alcohol <10 mg/dL Disposition Clinical Impression: Hypothermia Disposition: ADMITTED IP TO THIS HOSP Condition: Fair Decision Time: 06:38
[2023-03-02 05:14] LABS: Basophils # (A) 0.1 k/uL (0-0.2); Basophils % (A) 1 %; Eosinophils # (A) 0.2 k/uL (0-0.7); Eosinophils % (A) 1 %; HCT 41.9 % (34.0-46.0); HGB 13.8 gm/dL (11.4-16.0); Lymphocytes % (A) 9 %; MCH 29.5 pg (25.0-35.0); MCHC 32.9 g/dL (31.0-37.0); MCV 89.7 fL (80.0-100.0); Monocytes # (A) 0.7 k/uL (0-1.0); Monocytes % (A) 3 %; Neutrophils # (A) 18.9 k/uL (1.3-7.7); Neutrophils % (A) 86 %; Platelet Count 278 k/uL (150-450); RBC 4.67 m/uL (3.80-5.40); RDW 12.9 % (11.5-15.5)
[2023-03-02 05:16] LABS: ALT 22 U/L (4-34); AST 29 U/L (14-36); African American GFR (CKD) 63 (>60 ml/min/1.73 sqM); Albumin 4.3 g/dL (3.5-5.0); Alcohol <10 mg/dL; Alkaline Phosphatase 80 U/L (38-126); Anion Gap 17 mmol/L; Blood Urea Nitrogen 20 mg/dL (7-17); Calcium 8.4 mg/dL (8.4-10.2); Carbon Dioxide 15 mmol/L (22-30); Chloride 111 mmol/L (98-107); Glucose 172 mg/dL (74-99); Non-African American GFR(CKD) 55 (>60 ml/min/1.73 sqM); Potassium 4.6 mmol/L (3.5-5.1); Sodium 143 mmol/L (137-145); Total Bilirubin 0.2 mg/dL (0.2-1.3); Total Protein 6.9 g/dL (6.3-8.2)
[2023-03-02 05:29] LABS: Prothrombin Time 10.8 sec (10.0-12.5)
[2023-03-02 05:30] LABS: Partial Thromboplastin Time 21.3 sec (22.0-30.0)
[2023-03-02 05:31] LABS: HCG,Quantitative Serum <2.4 mIU/mL
[2023-03-02] MEDS ORDERED: NALOXONE 0.4 MG/ML 1 ML VIAL IV PRN (06:38)
[2023-03-02] MEDS ORDERED: SODIUM CHLORIDE 0.9% 1,000 ML IV SCH (06:45)
--- NOTE | 2023-03-02 06:48 | CT ---
EXAMINATION TYPE: CT brain concha guardado con DATE OF EXAM: 03/02/2023 COMPARISON: None HISTORY: possible fall found outside in [place] CT DLP: 1421.2 mGycm Automated exposure control for dose reduction was used. TECHNIQUE: CT scan of the head and cervical spine are performed without contrast. Findings: Head CT: Ventricles, basal cisterns and sulci over convexities within normal limits and there is no mass, mass effect or shift of midline structures. No abnormal density is seen throughout the brain parenchyma and there is no acute intra or extra-axia l hemorrhage. Posterior fossa including the brainstem, fourth ventricle and cerebellar pontine angles are grossly n ormal. The intraorbital contents appear normal and symmetric. Visualized paranasal sinuses are well aerated. CT cervical spine: Craniovertebral junction relationships and prevertebral soft tissues are normal. The cervical vertebral segments are normal in height and alignment and there is no fracture subluxati on. The disc spaces are well-maintained in height and there is no significant degenerative disc disease. The bony cervical canal is widely patent and there is no bony encroachment of the neural foramina. The paraspinal soft tissues unremarkable. IMPRESSION: 1. Head CT: No acute bleed or mass effect. 2. CT cervical spine: No acute trauma.
--- NOTE | 2023-03-02 06:52 | XR ---
EXAMINATION TYPE: XR chest 1V portable DATE OF EXAM: 03/02/2023 COMPARISON: 04/16/2015 HISTORY: Fall TECHNIQUE: Single frontal view of the chest is obtained. FINDINGS: There is no focal air space opacity, pleural effusion, or pneumothorax seen. The cardiac silhouette size is within normal limits. The osseous structures are intact. IMPRESSION: No acute process.
--- NOTE | 2023-03-02 06:54 | XR ---
Bilateral knees. HISTORY: Fall. COMPARISON: None TECHNIQUE: 4 views obtained 2 views of each knee including AP and lateral views. FINDINGS: There is no fracture, dislocation, intraosseous, intra-articular or soft tissue abnormality. There ar e no joint effusions. IMPRESSION: No significant abnormality. No evidence of acute trauma.
[2023-03-02 07:00] LABS: Amphetamine Screen,Urine Detected (NotDetected); Barbiturate Screen,Urine Not Detected (NotDetected); Benzodiazepines Screen,Urine Not Detected (NotDetected); Cocaine Screen,Urine Not Detected (NotDetected); Methadone Screen, Urine Not Detected (NotDetected); Opiate Screen,Urine Not Detected (NotDetected); Oxycodone Screen, Urine Not Detected (NotDetected); Phencyclidine Screen,Urine Not Detected (NotDetected); Tricyclic Antidepressant,Urine Not Detected (NotDetected); Urn Cannabinoid Scrn Detected (NotDetected)
[2023-03-02] MEDS ORDERED: NICOTINE 14MG/24HR PATCH TRANSDERM SCH (11:15)
[2023-03-02] MEDS: ENOXAPARIN 40 MG/0.4 ML SYRINGE SQ SCH (11:50)
[2023-03-02] MEDS: HYDROmorphone 0.5 MG/0.5 ML SYRINGE IVP PRN ×2 (15:56→22:20)
[2023-03-02] MEDS: DEXTROSE 5% IN WATER 1,000 ML with SODIUM BICARB (1 MEQ/ML) 100 ML IV SCH (17:38)
[2023-03-02] MEDS ORDERED: DIVALPROEX ER 250 MG TAB.ER.24H PO SCH (21:00)
[2023-03-02] MEDS ORDERED: MELATONIN 3 MG TABLET PO PRN (21:04)
[2023-03-02] MEDS ORDERED: ALPRAZolam 0.25 MG TAB PO PRN (21:04)
[2023-03-02] MEDS ORDERED: LACTULOSE 20 GM/30 ML CUP PO PRN (21:04)
[2023-03-02] MEDS ORDERED: ONDANSETRON 4 MG/2 ML VIAL IVP PRN (21:04)
[2023-03-02] MEDS ORDERED: CALCIUM CARBONATE 500 MG CHEWABLE PO PRN (21:04)
--- NOTE | 2023-03-02 21:05 | P.HPIM ---
History of Present Illness H&P Date: 03/02/23 Chief Complaint: Found outside I'm rounding for Dr. Lorenzo Singh. This is a 32-year-old patient, who was found outside in cold weather. Somebody's dog came and alerted and neighbor and he called 911. She has found to be soaking wet. Was taken in the ambulance warm packs a done. Wrapped up in blankets. Patient is awake but confused. She is brought into the ER here. She lives about [address] [place] where she was found. Patient was found or bruising on the knees. Some of the chin. Also frostbite blisters on the tips of her finger. Patient is schizophrenic does not been taking her lithium for last 2-3 months. Patient denies feeling depressed or anxious. Patient lives with her mother and stepfather. And a 10-year-old daughter. She had taken the car last night around 9:30 PM to go to a friend's house. She does not remember anything after that. Denies any chest pain or palpitation. She does methamphetamines occasionally. Does marijuana on a daily basis. No other dictation drugs. Patient states she's had tremors since she got from sometime ago. Review of systems: GEN.: Tired EYES: None HEENT: None NECK: None RESPIRATORY: None CARDIOVASCULAR: None GASTROINTESTINAL: None GENITOURINARY: None MUSCULOSKELETAL: Bruising around the knees LYMPHATICS: None HEMATOLOGICAL: None PSYCHIATRY: None NEUROLOGICAL: No focal symptoms Social history: Lives with her mother and stepfather. 10-year-old daughter. Smokes about one third a pack a day. Daily marijuana. Occasionally methamphetamines. Physical examination: VITAL SIGNS: 87.3, 98, 18, 108/92, 95% room air upon presentation GENERAL: BMI 24.3, laying in bed awake not in distress. EYES: Pupils equal. Conjunctiva normal. HEENT: External appearance of nose and ears normal, oral cavity grossly normal. NECK: JVD not raised; masses not palpable. HEART: First and second heart sounds are normal; no edema. LUNGS: Respiratory rate normal; clear to auscultation. ABDOMEN: Soft, nontender, liver spleen not palpable, no masses palpable. PSYCH: Alert and oriented x3; mood and affect normal. MUSCULOSKELETAL:No Clubbing/cyanosis;muscles-grossly intact NEUROLOGICAL: Cranial nerves grossly intact; no facial asymmetry, power and sensation grossly intact. Tremors. LYMPHATICS: No lymph nodes palpable in the axilla and neck EXTREMITIES: Fluid blisters and all the fingers on the pulp. Bruising around both the knees. Some scratches lower extremity. INVESTIGATIONS, reviewed in the clinical context: 03/02/2023: White count 22 hemoglobin 13.8 platelets 278 sodium 143 potassium 4.6 bicarbonate 15. 20 creatinine 1.29 Urine drug screen positive for amphetamines, methamphetamines, marijuana EKG tracing personally reviewed by me-jared calabrese. Sinus tachycardia. Chest x-ray film personally reviewed by me-unremarkable Knee x-ray, had cervical spine CT: Negative for fracture Assessment and plan: -Severe hypothermia from being outside in the cold. Patient had left her parents also from 9:30 PM. Supposed to go to a friend's house. In a car. Doesn't remember how she was followed on the floor. After about 34 hours she was discovered by a neighbor's dog. Patient has been warmed up. Given IV fluids. -Belcher bite blisters on the pulp of both hands. Supportive care keep warm. -Acute metabolic encephalopathy from severe hypothermia initially. Was confused and picked up by the EMS and brought to the ER.-not able to hold a regular conversation.: No better -Schizophrenia. Patient stopped taking her lithium about 2 months ago. Psychiatry consulted -Metabolic acidosis, with acute kidney injury Sodium bicarbonate drip -Acute kidney injury, likely ATN from severe hypothermia IV fluids -Amphetamine use occasionally -Marijuana use regular -Chronic nicotine dependence, cigarette smoker Nicotine patch Care was discussed with the patient. Questions answered. Past Medical History Past Medical History: No Reported History Additional Past Medical History / Comment(s): lipoma rt abdominal wall,"borderline diabetes" History of Any Multi-Drug Resistant Organisms: None Reported Past Surgical History: Section Additional Past Surgical History / Comment(s): c sections x 2 Past Anesthesia/Blood Transfusion Reactions: Postoperative Nausea & Vomiting (PONV) Additional Past Anesthesia/Blood Transfusion Reaction / Comment(s): no hx blood transfusion Past Psychological History: Anxiety, Depression, Schizoaffective Disorder Smoking Status: Vaper, Former smoker - Past Family History Mother Family Medical History: No Reported History Medications and Allergies Home Medications Medication Instructions Recorded Confirmed Type Methylsulfonylmethane [MSM] 900 mg PO DAILY 12/17/19 03/02/23 History Black Seed Oil 120mg Supplement 120 mg PO DAILY 03/30/21 03/02/23 History [place] 300mg 300 mg PO DAILY 03/30/21 03/02/23 History Allergies Allergy/AdvReac Type Severity Reaction Status Date / Time cat dander Allergy Rash/Hives Verified 03/02/23 11:40 Physical Exam Vitals: Vital Signs Temp Pulse Resp BP Pulse Ox 03/02/23 08:00 36.9 F L 116 H 20 138/95 97 03/02/23 07:00 118 H 20 137/99 96 03/02/23 06:31 96.3 F L 98 18 133/104 98 03/02/23 04:50 87.3 F L 98 18 108/92 95 Intake and Output 03/01/23 03/02/23 03/02/23 22:59 06:59 14:59 Other: Weight 70.307 kg Results CBC & Chem 7: 03/02/23 04:48 03/02/23 04:48 Labs: Abnormal Lab Results - Last 24 Hours (Table) 03/02/23 03/02/23 03/02/23 Range/Units 04:48 04:48 04:48 WBC 22.0 H (3.8-10.6) k/uL Neutrophils # 18.9 H (1.3-7.7) k/uL APTT 21.3 L (22.0-30.0) sec Chloride (98-107) mmol/L Carbon Dioxide (22-30) mmol/L BUN (7-17) mg/dL Creatinine (0.52-1.04) mg/dL Glucose (74-99) mg/dL Ur Amphetamines Screen Detected H (NotDetected) U Methamphetamines Scrn Detected H (NotDetected) U Marijuana (THC) Screen Detected H (NotDetected) 03/02/23 Range/Units 04:48 WBC (3.8-10.6) k/uL Neutrophils # (1.3-7.7) k/uL APTT (22.0-30.0) sec Chloride 111 H (98-107) mmol/L Carbon Dioxide 15 L (22-30) mmol/L BUN 20 H (7-17) mg/dL Creatinine 1.29 H (0.52-1.04) mg/dL Glucose 172 H (74-99) mg/dL Ur Amphetamines Screen (NotDetected) U Methamphetamines Scrn (NotDetected) U Marijuana (THC) Screen (NotDetected)
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
[2023-03-02] MEDS: NICOTINE 14MG/24HR PATCH TRANSDERM SCH (22:16)
--- NOTE | 2023-03-03 02:25 | P.CONS ---
History of Present Illness - Reason for Consult Consult date: 03/02/23 - History of Present Illness Patient is a 32-year-old female with a past medical history significant for shizoaffective disorder, bipolar and methamphetamine abuse, the patient was found outside by a neighbor unresponsive on the neighbors porch the neighbor called EMS and the patient was brought into the hospital on arrival to the ER patient was hypothermic with a core temperature of 87 F patient did have mild tachycardia but no hypotension or hypoxemia patient did have white count of 22,000 with a left shift BUN and creatinine mildly elevated liver enzymes are normal urine was positive for amphetamines methamphetamines and marijuana patient was noticed to have a erythema to bilateral lower extremity concerning for frostbite prompted this infectious disease consultation patient also have decided to fingertips however no evidence of any necrosis or changes has been noticed bilateral feet patient be complaining of some burning pain to the affected area mild to moderate intensity no open wound or any drainage, patient denies having any headache no chest pain shortness of breath or cough no nausea vomiting no abdominal pain or any diarrhea Past Medical History Past Medical History: No Reported History Additional Past Medical History / Comment(s): lipoma rt abdominal wall,"borderline diabetes" History of Any Multi-Drug Resistant Organisms: None Reported Past Surgical History: Section Additional Past Surgical History / Comment(s): c sections x 2 Past Anesthesia/Blood Transfusion Reactions: Postoperative Nausea & Vomiting (PONV) Additional Past Anesthesia/Blood Transfusion Reaction / Comm: no hx blood transfusion Past Psychological History: Anxiety, Depression, Schizoaffective Disorder Smoking Status: Vaper, Former smoker - Past Family History Mother Family Medical History: No Reported History Medications and Allergies Home Medications Medication Instructions Recorded Confirmed Type Methylsulfonylmethane [MSM] 900 mg PO DAILY 12/17/19 03/02/23 History Black Seed Oil 120mg Supplement 120 mg PO DAILY 03/30/21 03/02/23 History [place] 300mg 300 mg PO DAILY 03/30/21 03/02/23 History Allergies Allergy/AdvReac Type Severity Reaction Status Date / Time cat dander Allergy Rash/Hives Verified 03/02/23 11:40 Physical Exam Vitals: Vital Signs Temp Pulse Resp BP Pulse Ox 03/02/23 08:00 36.9 F L 116 H 20 138/95 97 03/02/23 07:00 118 H 20 137/99 96 03/02/23 06:31 96.3 F L 98 18 133/104 98 03/02/23 04:50 87.3 F L 98 18 108/92 95 Intake and Output 03/01/23 03/02/23 03/02/23 22:59 06:59 14:59 Other: Weight 70.307 kg Results CBC & Chem 7: 03/02/23 04:48 03/02/23 04:48 Labs: Abnormal Lab Results - Last 24 Hours (Table) 03/02/23 03/02/23 03/02/23 Range/Units 04:48 04:48 04:48 WBC 22.0 H (3.8-10.6) k/uL Neutrophils # 18.9 H (1.3-7.7) k/uL APTT 21.3 L (22.0-30.0) sec Chloride (98-107) mmol/L Carbon Dioxide (22-30) mmol/L BUN (7-17) mg/dL Creatinine (0.52-1.04) mg/dL Glucose (74-99) mg/dL Ur Amphetamines Screen Detected H (NotDetected) U Methamphetamines Scrn Detected H (NotDetected) U Marijuana (THC) Screen Detected H (NotDetected) 03/02/23 Range/Units 04:48 WBC (3.8-10.6) k/uL Neutrophils # (1.3-7.7) k/uL APTT (22.0-30.0) sec Chloride 111 H (98-107) mmol/L Carbon Dioxide 15 L (22-30) mmol/L BUN 20 H (7-17) mg/dL Creatinine 1.29 H (0.52-1.04) mg/dL Glucose 172 H (74-99) mg/dL Ur Amphetamines Screen (NotDetected) U Methamphetamines Scrn (NotDetected) U Marijuana (THC) Screen (NotDetected) Assessment and Plan Plan: 1patient presented to hospital unresponsive and this patient was noted to be hypothermic with a temperature of 87 F patient also noticed to have erythema to bilateral lower extremity concerning for frostbite and no skin necrosis has been noticed no blister formation except to the fingertips or any drainage 2-patient did have elevated white count which could be reactive to her frostbite however we will do further workup to rule out infectious etiology 3-treatment is mostly gradual rewarming and no need for any specific lotion or creams to the affected area falls but at this point 4-we will check blood cultures inflammatory markers UA We will follow on clinical condition and cultures to further adjust medication if needed Thank you for this consultation we will follow the patient along with you Dictation was produced using [employer] dictation software. please excuse any grammatical, word or spelling errors. Time with Patient: Greater than 30
[2023-03-03] MEDS: DEXTROSE 5% IN WATER 1,000 ML with SODIUM BICARB (1 MEQ/ML) 100 ML IV SCH ×2 (04:59→16:52)
[2023-03-03] MEDS: HYDROmorphone 0.5 MG/0.5 ML SYRINGE IVP PRN ×2 (05:01→09:36)
[2023-03-03 06:25] LABS: Basophils % (A) 0 %; Eosinophils # (A) 0.1 k/uL (0-0.7); Eosinophils % (A) 1 %; HCT 35.8 % (34.0-46.0); HGB 11.9 gm/dL (11.4-16.0); Lymphocytes # (A) 1.2 k/uL (1.0-4.8); Lymphocytes % (A) 13 %; MCH 30.1 pg (25.0-35.0); MCHC 33.3 g/dL (31.0-37.0); MCV 90.3 fL (80.0-100.0); Mean Platelet Volume 6.8; Monocytes # (A) 0.5 k/uL (0-1.0); Monocytes % (A) 5 %; Neutrophils # (A) 7.6 k/uL (1.3-7.7); Neutrophils % (A) 80 %; Platelet Count 227 k/uL (150-450); RBC 3.97 m/uL (3.80-5.40); RDW 12.8 % (11.5-15.5); WBC 9.5 k/uL (3.8-10.6)
[2023-03-03 06:56] LABS: ALT 18 U/L (4-34); AST 30 U/L (14-36); African American GFR (CKD) >90 (>60 ml/min/1.73 sqM); Albumin 3.3 g/dL (3.5-5.0); Albumin/Globulin Ratio 1.4; Alkaline Phosphatase 72 U/L (38-126); Anion Gap 4 mmol/L; Blood Urea Nitrogen 6 mg/dL (7-17); C Reactive Protein 6.6 mg/dL (<1.0); Calcium 7.8 mg/dL (8.4-10.2); Carbon Dioxide 25 mmol/L (22-30); Chloride 106 mmol/L (98-107); Globulin 2.4 g/dL; Glucose 120 mg/dL (74-99); Non-African American GFR(CKD) >90 (>60 ml/min/1.73 sqM); Potassium 3.6 mmol/L (3.5-5.1); Sodium 135 mmol/L (137-145); Total Bilirubin 0.6 mg/dL (0.2-1.3); Total Protein 5.7 g/dL (6.3-8.2)
[2023-03-03] MEDS: ENOXAPARIN 40 MG/0.4 ML SYRINGE SQ SCH (09:23)
[2023-03-03] MEDS: NICOTINE 14MG/24HR PATCH TRANSDERM SCH (09:23)
[2023-03-03 10:33] LABS: Appearance,Urine Clear (Clear); Bilirubin,Urine Negative (Negative); Blood,Urine Negative (Negative); Color,Urine Colorless; Glucose,Urine (UA) Negative (Negative); Ketones,Urine 1+ (Negative); Leukocyte Esterase,Urine Negative (Negative); Nitrite,Urine Negative (Negative); PH, Urine 6.5 (5.0-8.0); Protein,Urine Negative (Negative); Specific Gravity,Urine 1.015 (1.001-1.035); Urobilinogen,Urine <2.0 mg/dL (<2.0)
--- NOTE | 2023-03-03 11:00 | P.GSCN ---
History of Present Illness Consult date: 03/03/23 Reason for Consult: Frostbite to lower extremities Requesting physician: Lorenzo Singh History of present illness: This is a pleasant 32-year-old female who was brought in by EMS hot yesterday morning as her neighbor had found her unresponsive on their porch. Patient has a past medical history including schizophrenia, bipolar disorder, methamphetamine and cannabis use disorder. She was admitted to the hospital for hypothermia and acute kidney injury. Patient positive for amphetamines, methamphetamines and marijuana. The patient states she is unsure how long she was out in the cold. She states less than 24-hour she believes. She has blisters to bilateral fingertips and bruising and frostbite to knees and fischer. States that her fingers are painful to touch however improving and same with her lower extremities. Patient currently denies any numbness or tingling in her lower extremities, denies shortness of breath, chest pain, abdominal pain, nausea or vomiting, she's been afebrile. Review of Systems A 14 point review systems was completed all pertinent positives and negatives as stated in the HPI. Past Medical History Past Medical History: No Reported History Additional Past Medical History / Comment(s): lipoma rt abdominal wall,"borderline diabetes" History of Any Multi-Drug Resistant Organisms: None Reported Past Surgical History: Section Additional Past Surgical History / Comment(s): c sections x 2 Past Anesthesia/Blood Transfusion Reactions: Postoperative Nausea & Vomiting (PONV) Additional Past Anesthesia/Blood Transfusion Reaction / Comm: no hx blood transfusion Past Psychological History: Anxiety, Depression, Schizoaffective Disorder Smoking Status: Vaper, Former smoker - Past Family History Mother Family Medical History: No Reported History Medications and Allergies Home Medications Medication Instructions Recorded Confirmed Type Methylsulfonylmethane [MSM] 900 mg PO DAILY 12/17/19 03/02/23 History Black Seed Oil 120mg Supplement 120 mg PO DAILY 03/30/21 03/02/23 History [place] 300mg 300 mg PO DAILY 03/30/21 03/02/23 History Allergies Allergy/AdvReac Type Severity Reaction Status Date / Time cat dander Allergy Rash/Hives Verified 03/02/23 11:40 Surgical - Exam Vital Signs Temp Pulse Resp BP Pulse Ox 87.3 F L 98 18 108/92 95 03/02/23 04:50 03/02/23 04:50 03/02/23 04:50 03/02/23 04:50 03/02/23 04:50 General appearance: The patient is alert, oriented, patient is shaky/jittery, sweating, appears in no acute distress. HET: Head is normocephalic and atraumatic. Pupils are equal and reactive. Neck: Supple. Heart: Regular. Lungs: Equal expansion, normal respiratory effort. Abdomen: Soft, nontender, nondistended. Extremities: Bilateral hands, fingertips pink, warm to the touch with good capillary refill. Right hand second and third finger tips with blisters with clear fluid, left hand on the second through fifth fingertips with blisters with clear fluid. Palpable bilateral radial pulses. Bilateral palpable DP pulses, feet warm to touch with good capillary refill. Bilateral knees and shins with erythema, bruising right fischer with intact blister with clear fluid. Left knee with abrasion. Lower extremities tender to palpation. With good capillary refill and again warm to the touch. Neurological: No focal deficits. Strength and sensation are grossly intact. Results - Labs 03/03/23 06:09 03/03/23 06:09 Abnormal Lab Results - Last 24 Hours (Table) 03/03/23 Range/Units 06:09 Sodium 135 L (137-145) mmol/L BUN 6 L (7-17) mg/dL Glucose 120 H (74-99) mg/dL Calcium 7.8 L (8.4-10.2) mg/dL C-Reactive Protein 6.6 H (<1.0) mg/dL Total Protein 5.7 L (6.3-8.2) g/dL Albumin 3.3 L (3.5-5.0) g/dL Diabetes panel 03/03/23 Range/Units 06:09 Sodium 135 L (137-145) mmol/L Potassium 3.6 (3.5-5.1) mmol/L Chloride 106 (98-107) mmol/L Carbon Dioxide 25 (22-30) mmol/L BUN 6 L (7-17) mg/dL Creatinine 0.52 (0.52-1.04) mg/dL Glucose 120 H (74-99) mg/dL Calcium 7.8 L (8.4-10.2) mg/dL AST 30 (14-36) U/L ALT 18 (4-34) U/L Alkaline Phosphatase 72 (38-126) U/L Total Protein 5.7 L (6.3-8.2) g/dL Albumin 3.3 L (3.5-5.0) g/dL Calcium panel 03/03/23 Range/Units 06:09 Calcium 7.8 L (8.4-10.2) mg/dL Albumin 3.3 L (3.5-5.0) g/dL Pituitary panel 03/03/23 Range/Units 06:09 Sodium 135 L (137-145) mmol/L Potassium 3.6 (3.5-5.1) mmol/L Chloride 106 (98-107) mmol/L Carbon Dioxide 25 (22-30) mmol/L BUN 6 L (7-17) mg/dL Creatinine 0.52 (0.52-1.04) mg/dL Glucose 120 H (74-99) mg/dL Calcium 7.8 L (8.4-10.2) mg/dL Adrenal panel 03/03/23 Range/Units 06:09 Sodium 135 L (137-145) mmol/L Potassium 3.6 (3.5-5.1) mmol/L Chloride 106 (98-107) mmol/L Carbon Dioxide 25 (22-30) mmol/L BUN 6 L (7-17) mg/dL Creatinine 0.52 (0.52-1.04) mg/dL Glucose 120 H (74-99) mg/dL Calcium 7.8 L (8.4-10.2) mg/dL Total Bilirubin 0.6 (0.2-1.3) mg/dL AST 30 (14-36) U/L ALT 18 (4-34) U/L Alkaline Phosphatase 72 (38-126) U/L Total Protein 5.7 L (6.3-8.2) g/dL Albumin 3.3 L (3.5-5.0) g/dL - Imaging Comments: On the x-ray no significant abnormality. No evidence of acute trauma. Assessment and Plan Assessment: 1. Hypothermia from being outside in the cold, unclear duration. Found unresponsive 2. Frostbite to bilateral lower extremities 3. Frostbite to bilateral hands/fingertips 4. Acute kidney injury, resolved 5. Methamphetamine and marijuana abuse 6. Schizophrenia, bipolar disorder noncompliant with medications Plan: Bilateral lower extremities warm to the touch,. Areas marked with concern from frostbite, good capillary refill noted. Bilateral hands and fingertips warm to the touch, pink, good capillary refill. Blisters noted on fingertips of both hands. There is no indication at this time for any vascular surgical intervention. Continue to monitor fingers and lower extremities for any possible demarcation. Thank you for this consultation, we will continue to follow. The impression and plan of care has been dictated as directed. I performed a history and examination of this patient, discussed the same with the dictator. I agree with the dictator's note ,documented as a scribe. Any additional findings or plans will be noted.
[2023-03-03] MEDS: ACETAMINOPHEN TAB 325 MG TAB PO PRN (15:10)
--- NOTE | 2023-03-03 22:42 | P.PN ---
Subjective Progress Note Date: 03/03/23 Principal diagnosis: Reason for follow-up is leukocytosis and frostbite This is a telehealth visit Patient is a 32-year-old female with multiple mental disorder along with her drug abuse was brought into the ER after the patient was found to be unresponsive on the neighbors porch patient was noted to be hypothermic and did have evidence of blistering to the fingertip and a contreras bite to bilateral lower leg patient has been diagnosed with a frostbite and did have elevated white count prompting infectious disease consultation. On today's visit that is 03/03/2023 the patient remains to be afebrile, patient is breathing comfortably on room air without need for supplemental oxygen, the patient denies having any chest pain no significant cough or sputum production no nausea vomiting no abdominal pain and no diarrhea, patient did have some discomfort to the fingertips and bilateral lower leg however overall pain has decreased in intensity. The patient white count normalized to 9.5 creatinine 0.52 urine has been negative Objective - Vital Signs Vital signs: Vital Signs Temp 98.0 F 03/03/23 06:59 Pulse 95 03/03/23 06:59 Resp 20 03/03/23 10:14 BP 136/91 03/03/23 06:59 Pulse Ox 99 03/03/23 06:59 FiO2 Intake & Output 03/02/23 03/03/23 03/03/23 18:59 06:59 18:59 Intake Total 300 200 Balance 300 200 Weight 70.307 kg Intake: IV 100 Dextrose 5% in Water 1, 100 000 ml @ 100 mls/hr IV . Q11H FRANCISCO with Sodium Bicarb (1 Meq/ml) 100 ml Rx#:[id number] Oral 200 200 Other: Voiding Method Toilet # Voids 2 - Exam Young female lying in bed in no distress Patient did have blistering to the fingertips no redness Did have area of erythema to bilateral lower extremity which seem to have decreased in intensity from the line placed around no skin necrosis or any drainage Exam completed with the help of OFFICE RECEPTIONIST - Labs CBC & Chem 7: 03/03/23 06:09 03/03/23 06:09 Labs: Abnormal Lab Results - Last 24 Hours (Table) 03/03/23 03/03/23 Range/Units 02:25 06:09 Sodium 135 L (137-145) mmol/L BUN 6 L (7-17) mg/dL Glucose 120 H (74-99) mg/dL Calcium 7.8 L (8.4-10.2) mg/dL C-Reactive Protein 6.6 H (<1.0) mg/dL Total Protein 5.7 L (6.3-8.2) g/dL Albumin 3.3 L (3.5-5.0) g/dL Urine Ketones 1+ H (Negative) Assessment and Plan (1) Frostbite of both lower extremities Current Visit: Yes Status: Acute Code(s): T33.99XA - SUPERFICIAL FROSTBITE OF OTHER SITES, INITIAL ENCOUNTER; X31.XXXA - EXPOSURE TO EXCESSIVE NATURAL COLD, INITIAL ENCOUNTER SNOMED Code(s): 450813762 (2) Leukocytosis Current Visit: Yes Status: Acute Code(s): D72.829 - ELEVATED WHITE BLOOD CELL COUNT, UNSPECIFIED SNOMED Code(s): 951761991 Plan: 1patient presented to hospital unresponsive and this patient was noted to be hypothermic with a temperature of 87 F patient also noticed to have erythema to bilateral lower extremity concerning for frostbite and no skin necrosis has been noticed no blister formation except to the fingertips or any drainage 2-patient did have elevated white count which could be reactive to her frostbite, as no evidence of any secondary infection and the patient white count has normalized without any antibiotic therapy patient to monitor closely off antibiotic therapy vascular surgery is following the patient as well Dictation was produced using [employer] dictation software. please excuse any grammatical, word or spelling errors. Time with Patient: Less than 30
[2023-03-04] MEDS: ACETAMINOPHEN TAB 325 MG TAB PO PRN (01:19)
[2023-03-04] MEDS: DEXTROSE 5% IN WATER 1,000 ML with SODIUM BICARB (1 MEQ/ML) 100 ML IV SCH ×2 (01:36→14:33)
--- NOTE | 2023-03-04 01:45 | PN ---
PROGRESS NOTE SUBJECTIVE: 32-year-old white female was admitted, had consultation with Infectious Disease, Dr. Hill for possible infection, history of drug abuse, schizoaffective. White count [id number]. Temperature 98. 87. Dr. Hill saw and evaluated. She came in unresponsive, hypothermic, possible frostbite Infectious Disease. Continue with prognosis guarded. Psychiatry saw her, who recommends no psychiatric admission, unspecified mood disorder due to methamphetamine, cannabis, cannabis use disorder, nicotine use disorder, methamphetamine use disorder. 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 AA recommended. Surgery saw her for frostbite. She has some blisters on her extremities. Sodium 135, glucose 120, calcium 7.8. ASSESSMENT: Hypothermia secondary to cold, with frostbite to bilateral hands, finger taps, lower extremities, acute kidney injury, resolved, methamphetamine and marijuana abuse, schizophrenia, no vascular surgical intervention is needed at this time. Wait for Dr. Erickson, Infectious Disease, recommend findings. Continue current treatments, broad- spectrum antibiotics, and fluid rehydration. MMODL / IJN: [id number] /
[2023-03-04] MEDS: HYDROmorphone 0.5 MG/0.5 ML SYRINGE IVP PRN ×2 (07:14→15:45)
[2023-03-04] MEDS: NICOTINE 14MG/24HR PATCH TRANSDERM SCH (07:14)
[2023-03-04] MEDS: ENOXAPARIN 40 MG/0.4 ML SYRINGE SQ SCH (07:15)
[2023-03-04 07:25] VITALS: TEMP 98
--- NOTE | 2023-03-04 12:52 | P.PN ---
Subjective Progress Note Date: 03/04/23 Principal diagnosis: Frostbite Patient is seen and examined today as a follow-up for frostbite on her fingers and lower extremities. States that the pain in her fingers is improving, she still has blisters intact on her fingers with clear fluid. She is afebrile. States most of her discomfort is in her lower extremities at her knees. Objective - Vital Signs Vital signs: Vital Signs Temp 98.0 F 03/04/23 07:10 Pulse 106 H 03/04/23 07:10 Resp 18 03/04/23 09:01 BP 125/77 03/04/23 07:10 Pulse Ox 99 03/04/23 07:10 FiO2 Intake & Output 03/03/23 03/04/23 03/04/23 18:59 06:59 18:59 Intake Total 400 1680 250 Balance 400 1680 250 Intake: Intake, IV Titration 1200 Amount Dextrose 5% in Water 1, 1200 000 ml @ 100 mls/hr IV . Q11H FRANCISCO with Sodium Bicarb (1 Meq/ml) 100 ml Rx#:[id number] Oral 400 480 250 Other: Voiding Method Toilet Toilet # Voids 2 4 3 - Exam General appearance: The patient is alert, oriented, appears in no acute distress. HET: Head is normocephalic and atraumatic. Pupils are equal and reactive. Neck: Supple. Abdomen: Soft, nondistended. Extremities: Bilateral hands, fingertips pink, warm to the touch with good capillary refill. Right hand second and third finger tips with blisters with clear fluid, left hand second through fifth fingertips with blisters with clear fluid. Palpable bilateral radial pulses. Bilateral palpable DP pulses, feet warm to touch with good capillary refill. Bilateral knees and shins with erythema, bruising right fischer with popped blister. Left knee with abrasion, bruising and to clear fluid-filled blisters. Lower extremities tender to palpation. With good capillary refill and again warm to the touch. Neurological: No focal deficits. Strength and sensation are grossly intact. - Labs CBC & Chem 7: 03/03/23 06:09 03/03/23 06:09 Assessment and Plan Assessment: 1. Hypothermia from being outside in the cold, unclear duration. Found unresponsive 2. Frostbite to bilateral lower extremities 3. Frostbite to bilateral hands/fingertips 4. Acute kidney injury, resolved 5. Methamphetamine and marijuana abuse 6. Schizophrenia, bipolar disorder noncompliant with medications Plan: Bilateral lower extremities warm to the touch,. Areas marked with concern from frostbite, good capillary refill noted. Bilateral hands and fingertips warm to the touch, pink, good capillary refill. Blisters noted on fingertips of both hands. There is no indication at this time for any vascular surgical intervention. Continue to monitor fingers and lower extremities for any possible demarcation. Thank you for this consultation, patient is cleared from vascular surgery for discharge. Recommend outpatient follow-up in 1 to 2 weeks. The impression and plan of care has been dictated as directed. I performed a history and examination of this patient, discussed the same with the dictator. I agree with the dictator's note ,documented as a scribe. Any additional findings or plans will be noted.
[2023-03-04 13:26] LABS: Basophils # (A) 0.06 X 10*3/uL (0.00-0.10); Basophils % (A) 0.8 %; Eosinophils # (A) 0.22 X 10*3/uL (0.04-0.35); Eosinophils % (A) 3.1 %; HCT 34.3 % (37.2-46.3); HGB 11.3 g/dL (12.0-15.0); Lymphocytes # (A) 2.35 X 10*3/uL (0.90-5.00); Lymphocytes % (A) 32.8 %; MCH 28.8 pg (27.0-32.0); MCHC 32.9 g/dL (32.0-37.0); MCV 87.3 FL (80.0-97.0); Mean Platelet Volume 10.1 FL (9.5-12.2); Monocytes # (A) 0.64 X 10*3/uL (0.20-1.00); Monocytes % (A) 8.9 %; NRBC Per 100 WBC 0 X 10*3/uL (0.00-0.01); Neutrophils # (A) 3.87 X 10*3/uL (1.80-7.70); Platelet Count 222 X 10*3/uL (140-440); RBC 3.93 X 10*6/uL (4.10-5.20); RDW 12.7 % (11.5-14.5); WBC 7.17 X 10*3/uL (4.50-10.00)
[2023-03-04 13:51] LABS: ALT 14 U/L (8-44); AST 20 U/L (13-35); Albumin 3.6 g/dL (3.8-4.9); Albumin/Globulin Ratio 1.89 Ratio (1.60-3.17); Alkaline Phosphatase 63 U/L (41-126); BUN/Creat Ratio 7.71 Ratio (12.00-20.00); Blood Urea Nitrogen 5.4 mg/dL (9.0-27.0); Calcium 8.5 mg/dL (8.7-10.3); Chloride 105 mmol/L (96-109); Globulin 1.9 g/dL (1.6-3.3); Glucose 101 mg/dL (70-110); Potassium 3.5 mmol/L (3.5-5.5); Sodium 141 mmol/L (135-145); Total Bilirubin 0.3 mg/dL (0.3-1.2); Total Protein 5.5 g/dL (6.2-8.2)
[2023-03-04 14:11] VITALS: BP 118/72; PULSE 114; RESP 20
== END 2023-03-04 18:55 | disposition home or self-care (01) | DRG 815 ==
LOC: EC 04:19 → 4SSUR 06:38
PROVIDERS: ADMIT Family Medicine; ATTEND Family Medicine
DX: T68.XXXA Hypothermia, initial encounter (principal); T33.521A Superficial frostbite of right hand, initial encounter; T33.522A Superficial frostbite of left hand, initial encounter; X31.XXXA Exposure to excessive natural cold, initial encounter; W10.9XXA Fall (on) (from) unspecified stairs and steps, initial encounter; S80.02XA Contusion of left knee, initial encounter; S80.01XA Contusion of right knee, initial encounter; R73.03 Prediabetes; N17.0 Acute kidney failure with tubular necrosis; F15.13 Other stimulant abuse with withdrawal; F41.9 Anxiety disorder, unspecified; F25.9 Schizoaffective disorder, unspecified; F19.94 Other psychoactive substance use, unspecified with psychoactive substance-induced mood disorder; Z28.310 Unvaccinated for COVID-19; Z28.21 Immunization not carried out because of patient refusal; E87.20 Acidosis, unspecified; F12.10 Cannabis abuse, uncomplicated; F17.210 Nicotine dependence, cigarettes, uncomplicated; G93.41 Metabolic encephalopathy; Z91.148 Patient's other noncompliance with medication regimen for other reason
CPT/HCPCS: 36415; 70450; 71045; 72125; 80053; 80306; 80320; 81003; 84702; 85025; 85610; 85730; 86140; 87040; 93005; 96360; 96361; 99291

== ENCOUNTER 2023-07-10 18:00 | Observation (INO) | payer OTHER ==
[2023-07-10 19:56] LABS: Basophils # (A) 0.1 k/uL (0-0.2); Basophils % (A) 0 %; Eosinophils # (A) 0.2 k/uL (0-0.7); Eosinophils % (A) 2 %; HCT 42.4 % (34.0-46.0); HGB 14.4 gm/dL (11.4-16.0); Lymphocytes # (A) 1.2 k/uL (1.0-4.8); Lymphocytes % (A) 8 %; MCH 29.3 pg (25.0-35.0); MCHC 33.9 g/dL (31.0-37.0); MCV 86.4 fL (80.0-100.0); Mean Platelet Volume 9.9; Monocytes # (A) 0.7 k/uL (0-1.0); Monocytes % (A) 5 %; Neutrophils % (A) 84 %; Platelet Count 156 k/uL (150-450); RBC 4.91 m/uL (3.80-5.40); RDW 13.5 % (11.5-15.5); WBC 14.2 k/uL (3.8-10.6)
[2023-07-10 19:58] LABS: ALT 11 U/L (4-34); AST 17 U/L (14-36); African American GFR (CKD) >90 (>60 ml/min/1.73 sqM); Albumin 4.4 g/dL (3.5-5.0); Alcohol <10 mg/dL; Alkaline Phosphatase 65 U/L (38-126); Anion Gap 7 mmol/L; Blood Urea Nitrogen 7 mg/dL (7-17); Carbon Dioxide 23 mmol/L (22-30); Chloride 109 mmol/L (98-107); Glucose 100 mg/dL (74-99); Non-African American GFR(CKD) >90 (>60 ml/min/1.73 sqM); Sodium 139 mmol/L (137-145); Total Bilirubin 0.7 mg/dL (0.2-1.3); Total Protein 6.8 g/dL (6.3-8.2)
--- NOTE | 2023-07-10 20:12 | ED ---
Seizure HPI - General Chief Complaint: Seizure Stated Complaint: Seizure Time Seen by Provider: 07/10/23 19:11 Source: patient, EMS Mode of arrival: EMS Limitations: no limitations - History of Present Illness Initial Comments: 33-year-old female presenting with chief complaint of seizure-like activity. Patient is accompanied by loved ones at the bedside. They state that the patient had 3 episodes of seizure-like activity over the last 12 hours. She s tates that the last seizure occurred around 5 PM. They claim the seizures lasted for about 5 minutes. They deny any head injury. Patient has no history of seizures. Patient does admit to cocaine and marijuana use. She denies any alcohol use. She states that she feels a bit tired at this time. No nausea, vomiting, headache, neck pain, vision or hearing changes, numbness, tingling, weakness, chest pain, difficulty breathing. - Related Data Home Medications Medication Instructions Recorded Confirmed Methylsulfonylmethane [MSM] 900 mg PO DAILY 12/17/19 03/02/23 Black Seed Oil 120mg Supplement 120 mg PO DAILY 03/30/21 03/02/23 [place] 300mg 300 mg PO DAILY 03/30/21 03/02/23 Previous Rx's Medication Instructions Recorded Nicotine 14Mg/24Hr Patch [Habitrol] 1 patch TRANSDERM DAILY 30 Days 03/04/23 #30 patch Allergies Allergy/AdvReac Type Severity Reaction Status Date / Time cat dander Allergy Rash/Hives Verified 03/02/23 11:40 Review of Systems ROS Statement: Those systems with pertinent positive or pertinent negative responses have been documented in the HPI. ROS Other: All systems not noted in ROS Statement are negative. Past Medical History Past Medical History: No Reported History Additional Past Medical History / Comment(s): lipoma rt abdominal wall,"borderline diabetes" History of Any Multi-Drug Resistant Organisms: None Reported Past Surgical History: Section Additional Past Surgical History / Comment(s): c sections x 2 Past Anesthesia/Blood Transfusion Reactions: Postoperative Nausea & Vomiting (PONV) Additional Past Anesthesia/Blood Transfusion Reaction / Comment(s): no hx blood transfusion Past Psychological History: Anxiety, Depression, Schizoaffective Disorder Smoking Status: Vaper, Former smoker - Past Family History Mother Family Medical History: No Reported History General Exam Limitations: no limitations General appearance: alert, in no apparent distress Head exam: Present: atraumatic, normocephalic Eye exam: Present: normal appearance, PERRL, EOMI Neck exam: Present: normal inspection, full ROM Respiratory exam: Present: normal lung sounds bilaterally. Absent: respiratory distress, wheezes, rales, rhonchi, stridor Cardiovascular Exam: Present: regular rate, normal rhythm, normal heart sounds. Absent: systolic murmur, diastolic murmur, rubs, gallop, clicks Extremities exam: Absent: pedal edema Neurological exam: Present: alert, oriented X3, CN II-XII intact Expanded Patient oriented to: Present: person, place, time Speech: Present: fluid speech Cranial nerves: EOM's Intact: Normal Motor strength exam: RUE: 5, LUE: 5, RLE: 5, LLE: 5 Eye Response: (4) open spontaneously Motor Response: (6) obeys commands Verbal Response: (5) oriented [place] Total: 15 Psychiatric exam: Present: normal affect, normal mood Skin exam: Present: normal color Course Vital Signs 07/10/23 07/10/23 07/10/23 18:04 19:01 20:30 Temperature 98.3 F 98.7 F 98.1 F Pulse Rate 111 H 92 98 Respiratory 18 18 16 Rate Blood Pressure 145/101 142/93 135/98 O2 Sat by Pulse 95 97 99 Oximetry 07/10/23 22:00 Temperature Pulse Rate 89 Respiratory 16 Rate Blood Pressure 128/89 O2 Sat by Pulse 99 Oximetry Medical Decision Making - Medical Decision Making Was pt. sent in by a medical professional or institution (, PA, CERTIFIED HYPERBARIC TECHNOLOGIST, urgent care, hospital, or usp...) When possible be specific @ -No Did you speak to anyone other than the patient for history (EMS, parent, family, police, friend...)? What history was obtained from this source @ -No Did you review nursing and triage notes (agree or disagree)? Why? @ -I reviewed and agree with nursing and triage notes Were old charts reviewed (outside hosp., previous admission, EMS record, old EKG, old radiological studies, urgent care reports/EKG's, usp records)? Report findings @ -No old charts were reviewed Differential Diagnosis (chest pain, altered mental status, abdominal pain women, abdominal pain men, vaginal bleeding, weakness, fever, dyspnea, syncope, headache, dizziness, GI bleed, back pain, seizure, CVA, palpatations, mental health, musculoskeletal)? @ -MDM Differential Seizure: Recurrent seizure disorder, febrile seizure, alcohol withdrawal, stimulants, meningitis, encephalitis, intercranial hemorrhage, intracranial tumor, stroke, eclampsia, thyrotoxicosis, hypocalcemia, hyponatremia, hypernatremia, hypomagnesemia, psychogenic this is not meant to be an all-inclusive list EKG interpreted by me (3pts min.). @ -EKG shows sinus rhythm ventricular rate 84. IL interval 139. QRS 91. QT 401. QTc 442. No ST deviation. X-rays interpreted by me (1pt min.). @ -None done CT interpreted by me (1pt min.). @ -CT of the brain shows no acute process U/S interpreted by me (1pt. min.). @ -None done What testing was considered but not performed or refused? (CT, X-rays, U/S, labs)? Why? @ -None What meds were considered but not given or refused? Why? @ -None Did you discuss the management of the patient with other professionals (professionals i.e. , PA, CERTIFIED HYPERBARIC TECHNOLOGIST, lab, RT, psych nurse, social worker delinquency prevention, janitorial account manager, teacher, field artillery officer, shoe parts caser)? Give summary @ -Spoke with Dr. Singh who accepted admission Was smoking cessation discussed for >3mins.? @ -No Was critical care preformed (if so, how long)? @ -No Were there social determinants of health that impacted care today? How? (Homelessness, low income, unemployed, alcoholism, drug addiction, transportation, low edu. Level, literacy, decrease access to med. care, fdc, rehab)? @ -No Was there de-escalation of care discussed even if they declined (Discuss DNR or withdrawal of care, Hospice)? DNR status @ -No What co-morbidities impacted this encounter? (DM, HTN, Smoking, COPD, CAD, Cancer, CVA, ARF, Chemo, Hep., AIDS, mental health diagnosis, sleep apnea, morbid obesity)? @ -None Was patient admitted / discharged? Hospital course, mention meds given and route, prescriptions, significant lab abnormalities, going to OR and other pertinent info. @ -33-year-old female presenting with chief complaint of seizure-like activity. No history of seizures. History and physical exam are conducted. Negative CT of the brain. Urine is positive for UTI, patient is treated with Rocephin. Negative hCG. Urine toxicology positive for marijuana, cocaine, amphetamines, methamphetamines. Patient and family are educated on today's findings. Family is requesting admission. I spoke with the patient's PCP Dr. Lynn who accepted admission. Patient agreeable with plan. I discussed this case with my attending Dr. Levy. Undiagnosed new problem with uncertain prognosis? @ -No Drug Therapy requiring intensive monitoring for toxicity (Heparin, Nitro, Ins ulin, Cardizem)? @ -No Were any procedures done? @ -No Diagnosis/symptom? @ -Seizure-like activity Acute, or Chronic, or Acute on Chronic? @ -Acute Uncomplicated (without systemic symptoms) or Complicated (systemic symptoms)? @ -Complicated Side effects of treatment? @ -No Exacerbation, Progression, or Severe Exacerbation? @ -No Poses a threat to life or bodily function? How? (Chest pain, USA, [place], pneumonia, PE, COPD, DKA, ARF, appy, cholecystitis, CVA, Diverticulitis, Homicidal, Suicidal, threat to staff... and all critical care pts) @ -Yes - Lab Data Result diagrams: 07/10/23 19:37 07/10/23 19:37 Lab Results 07/10/23 07/10/23 07/10/23 Range/Units 19:37 19:37 23:42 WBC 14.2 H (3.8-10.6) k/uL RBC 4.91 (3.80-5.40) m/uL Hgb 14.4 (11.4-16.0) gm/dL Hct 42.4 (34.0-46.0) % MCV 86.4 (80.0-100.0) fL MCH 29.3 (25.0-35.0) pg MCHC 33.9 (31.0-37.0) g/dL RDW 13.5 (11.5-15.5) % Plt Count 156 (150-450) k/uL MPV 9.9 Neutrophils % 84 % Lymphocytes % 8 % Monocytes % 5 % Eosinophils % 2 % Basophils % 0 % Neutrophils # 12.0 H (1.3-7.7) k/uL Lymphocytes # 1.2 (1.0-4.8) k/uL Monocytes # 0.7 (0-1.0) k/uL Eosinophils # 0.2 (0-0.7) k/uL Basophils # 0.1 (0-0.2) k/uL Sodium 139 (137-145) mmol/L Potassium 4.0 (3.5-5.1) mmol/L Chloride 109 H (98-107) mmol/L Carbon Dioxide 23 (22-30) mmol/L Anion Gap 7 mmol/L BUN 7 (7-17) mg/dL Creatinine 0.64 (0.52-1.04) mg/dL Est GFR (CKD-EPI)AfAm >90 (>60 ml/min/1.73 sqM) Est GFR (CKD-EPI)NonAf >90 (>60 ml/min/1.73 sqM) Glucose 100 H (74-99) mg/dL Calcium 9.0 (8.4-10.2) mg/dL Magnesium 2.0 (1.6-2.3) mg/dL Total Bilirubin 0.7 (0.2-1.3) mg/dL AST 17 (14-36) U/L ALT 11 (4-34) U/L Alkaline Phosphatase 65 (38-126) U/L Total Protein 6.8 (6.3-8.2) g/dL Albumin 4.4 (3.5-5.0) g/dL Urine Color Yellow Urine Appearance Cloudy H (Clear) Urine pH 6.0 (5.0-8.0) Ur Specific [place] 1.023 (1.001-1.035) Urine Protein Trace H (Negative) Urine Glucose (UA) Negative (Negative) Urine Ketones 1+ H (Negative) Urine Blood Negative (Negative) Urine Nitrite Positive H (Negative) Urine Bilirubin Negative (Negative) Urine Urobilinogen 3.0 (<2.0) mg/dL Ur Leukocyte Esterase Moderate H (Negative) Urine RBC 1 (0-5) /hpf Urine WBC 62 H (0-5) /hpf Ur Squamous Epith Cells 1 (0-4) /hpf Urine Bacteria Many H (None) /hpf Hyaline Casts 23 H (0-2) /lpf Urine Mucus Many H (None) /hpf Urine HCG, Qual (Not Detectd) Urine Opiates Screen Not Detected (NotDetected) Ur Oxycodone Screen Not Detected (NotDetected) Urine Methadone Screen Not Detected (NotDetected) Ur Barbiturates Screen Not Detected (NotDetected) U Tricyclic Antidepress Not Detected (NotDetected) Ur Phencyclidine Scrn Not Detected (NotDetected) Ur Amphetamines Screen Detected H (NotDetected) U Methamphetamines Scrn Detected H (NotDetected) U Benzodiazepines Scrn Not Detected (NotDetected) Urine Cocaine Screen Detected H (NotDetected) U Marijuana (THC) Screen Detected H (NotDetected) Serum Alcohol <10 mg/dL 07/10/23 Range/Units 23:42 WBC (3.8-10.6) k/uL RBC (3.80-5.40) m/uL Hgb (11.4-16.0) gm/dL Hct (34.0-46.0) % MCV (80.0-100.0) fL MCH (25.0-35.0) pg MCHC (31.0-37.0) g/dL RDW (11.5-15.5) % Plt Count (150-450) k/uL MPV Neutrophils % % Lymphocytes % % Monocytes % % Eosinophils % % Basophils % % Neutrophils # (1.3-7.7) k/uL Lymphocytes # (1.0-4.8) k/uL Monocytes # (0-1.0) k/uL Eosinophils # (0-0.7) k/uL Basophils # (0-0.2) k/uL Sodium (137-145) mmol/L Potassium (3.5-5.1) mmol/L Chloride (98-107) mmol/L Carbon Dioxide (22-30) mmol/L Anion Gap mmol/L BUN (7-17) mg/dL Creatinine (0.52-1.04) mg/dL Est GFR (CKD-EPI)AfAm (>60 ml/min/1.73 sqM) Est GFR (CKD-EPI)NonAf (>60 ml/min/1.73 sqM) Glucose (74-99) mg/dL Calcium (8.4-10.2) mg/dL Magnesium (1.6-2.3) mg/dL Total Bilirubin (0.2-1.3) mg/dL AST (14-36) U/L ALT (4-34) U/L Alkaline Phosphatase (38-126) U/L Total Protein (6.3-8.2) g/dL Albumin (3.5-5.0) g/dL Urine Color Urine Appearance (Clear) Urine pH (5.0-8.0) Ur Specific [place] (1.001-1.035) Urine Protein (Negative) Urine Glucose (UA) (Negative) Urine Ketones (Negative) Urine Blood (Negative) Urine Nitrite (Negative) Urine Bilirubin (Negative) Urine Urobilinogen (<2.0) mg/dL Ur Leukocyte Esterase (Negative) Urine RBC (0-5) /hpf Urine WBC (0-5) /hpf Ur Squamous Epith Cells (0-4) /hpf Urine Bacteria (None) /hpf Hyaline Casts (0-2) /lpf Urine Mucus (None) /hpf Urine HCG, Qual Not Detected (Not Detectd) Urine Opiates Screen (NotDetected) Ur Oxycodone Screen (NotDetected) Urine Methadone Screen (NotDetected) Ur Barbiturates Screen (NotDetected) U Tricyclic Antidepress (NotDetected) Ur Phencyclidine Scrn (NotDetected) Ur Amphetamines Screen (NotDetected) U Methamphetamines Scrn (NotDetected) U Benzodiazepines Scrn (NotDetected) Urine Cocaine Screen (NotDetected) U Marijuana (THC) Screen (NotDetected) Serum Alcohol mg/dL Disposition Clinical Impression: Seizure-like activity Disposition: ADMITTED IP TO THIS HOSP Condition: Fair Time of Disposition: 00:30
[2023-07-10] MEDS: SODIUM CHLORIDE 0.9% 1,000 ML IV STA (20:20)
--- NOTE | 2023-07-10 20:41 | CT ---
EXAMINATION TYPE: CT brain wo con DATE OF EXAM: 07/10/2023 COMPARISON: CT 03/02/2023 HISTORY: x3 Seizures today. CT DLP: 1052.4 mGycm. Automated Exposure Control for Dose Reduction was Utilized. TECHNIQUE: CT scan of the head is performed without contrast. FINDINGS: The calvarium is intact. There is no intracranial hemorrhage. There is no mass or mass effect. No def inite new intra-axial or extra-axial attenuation defect. The paranasal sinuses, middle ear cavities, and mastoid sinus air cells are clear. Excessive cerumen is noted within the right external auditory canal. The orbits are unremarkable. IMPRESSION: No acute process.
[2023-07-11] LABS: Appearance,Urine Cloudy (Clear); Bacteria,Urine Many /hpf; Bilirubin,Urine Negative (Negative); Blood,Urine Negative (Negative); Color,Urine Yellow; Glucose,Urine (UA) Negative (Negative); Hyaline Casts,Urine 23 /lpf (0-2); Ketones,Urine 1+ (Negative); Leukocyte Esterase,Urine Moderate (Negative); Mucus,Urine Many /hpf; Nitrite,Urine Positive (Negative); Protein,Urine Trace (Negative); RBC,Urine 1 /hpf (0-5); Specific Gravity,Urine 1.023 (1.001-1.035); Squamous Epithelial Cell,Urine 1 /hpf (0-4); WBC,Urine 62 /hpf (0-5)
[2023-07-11] MEDS ORDERED: NALOXONE 0.4 MG/ML 1 ML VIAL IV PRN (00:26)
[2023-07-11] MEDS ORDERED: ACETAMINOPHEN TAB 325 MG TAB PO PRN (00:26)
[2023-07-11 00:31] LABS: Amphetamine Screen,Urine Detected (NotDetected); Barbiturate Screen,Urine Not Detected (NotDetected); Benzodiazepines Screen,Urine Not Detected (NotDetected); Cocaine Screen,Urine Detected (NotDetected); Methadone Screen, Urine Not Detected (NotDetected); Opiate Screen,Urine Not Detected (NotDetected); Oxycodone Screen, Urine Not Detected (NotDetected); Phencyclidine Screen,Urine Not Detected (NotDetected); Tricyclic Antidepressant,Urine Not Detected (NotDetected); Urn Cannabinoid Scrn Detected (NotDetected)
[2023-07-11] MEDS: SODIUM CHLORIDE 0.9% 1,000 ML IV SCH (01:19)
[2023-07-11] MEDS: cefTRIAXone IN SWFI 1,000 MG/10 ML SYRINGE IVP STA (01:19)
[2023-07-11 16:45] VITALS: BP 139/92; PULSE 97; RESP 19; TEMP 98.6
--- NOTE | 2023-07-12 11:54 | P.CNNES ---
History of Present Illness Consult date: 07/11/23 Requesting physician: Ela Mccollum Reason for Consult: Seizure-like activity History of Present Illness: Patient is a 33-year-old right-handed female who was brought to the hospital by ambulance yesterday at 6 PM for possible seizure. Patient states that she woke up yesterday at around 11 AM and was feeling fine. She went to the bathroom for routine. She came back Kannan was sitting in the bed, and the next thing she remembers is "coming to". She does not know how long she was out for.. She denies tongue bite or loss of control of urine. She collected herself and stayed in the bed and couple hours later, it happened again. She called her mom and stepdad and they called ambulance. As per EMS flowsheet, when they arrived, patient was alert and orient x 4, sitting on the front steps. Patient chief complaint was 3 seizures in the past 13 hours. The first seizure was at approximately 3 AM and the most third seizure was approximately 5:20 PM. Per family on the scene, the seizures lasted approximately 5 minutes with 5 minutes postictal.. Patient and family denied prior history of seizures. Patient denied any pain or injuries. Patient admitted to using cocaine 2 days ago and marijuana use last week. Patient denied drug or alcohol use in the past 24 hours. Patient's blood pressure at the scene was 160/1 and 17, pulse rate 135 respiration 16 saturation 98%. Blood glucose 141 mg/dL. Vital signs on arrival blood pressure 145/101, pulse rate 111, temperature 98.3. Her blood pressure has improved, and the most recent blood pressure 139/92. Blood test shows WBC 14.2 hemoglobin 14.4 normal platelets, CMP. UA shows positive nitrite, and moderate leukocyte esterase. Urine drug screen positive for amphetamine, methamphetamine, cocaine and marijuana. Blood alcohol level less than 10. EKG showed sinus tachycardia, CT head showed no acute process. I personally reviewed CT head, agree with the findings. Patient states that she started using cocaine just in the last 1 month. She has smoked cocaine 4 times in the last 1 month and the most recent one was yesterday. She also mentions that she has been doing meth only for last couple months and the most recent 1 was done yesterday. She has been using marijuana since she was age 11. Denies any alcohol use. Denies ever use of IV drugs. On review of records, it appears patient has cocaine positive in her system first time, but has had marijuana positive every single time tested, and amphetamines present in the urine 4 out of 5 times that it has been checked in the past. Review of Systems Constitutional: Denies chills, Denies fever Eyes: denies blurred vision, denies pain Ears: deny: decreased hearing, ear discharge Ears, nose, mouth and throat: Denies headache, Denies sore throat, Denies vertigo Cardiovascular: Denies chest pain, Denies shortness of breath Respiratory: Denies cough, Denies excessive sputum Gastrointestinal: Denies abdominal pain, Denies diarrhea, Denies nausea, Denies vomiting Integumentary: Denies pruritus, Denies rash Neurological: Reports as per HPI, Reports seizures Past Medical History Past Medical History: No Reported History Additional Past Medical History / Comment(s): lipoma rt abdominal wall,"borderline diabetes" History of Any Multi-Drug Resistant Organisms: None Reported Past Surgical History: Section Additional Past Surgical History / Comment(s): c sections x 2 Past Anesthesia/Blood Transfusion Reactions: Postoperative Nausea & Vomiting (PONV) Additional Past Anesthesia/Blood Transfusion Reaction / Comment(s): no hx blood transfusion Past Psychological History: Anxiety, Depression, Schizoaffective Disorder Smoking Status: Vaper, Former smoker - Past Family History Mother Family Medical History: No Reported History Medications and Allergies Home Medications Medication Instructions Recorded Confirmed Type No Known Home Medications 07/11/23 07/11/23 History Allergies Allergy/AdvReac Type Severity Reaction Status Date / Time cat dander Allergy Rash/Hives Verified 07/11/23 07:04 Physical Examination - Vital Signs Vital Signs: Vital Signs Temp Pulse Pulse Resp BP BP Pulse Ox 07/11/23 12:00 98.3 F 101 H 14 145/83 99 07/11/23 08:00 98.3 F 85 14 138/97 99 07/11/23 05:52 97.6 F 116 H 18 144/105 100 07/10/23 22:00 89 16 128/89 99 07/10/23 20:30 98.1 F 98 16 135/98 99 07/10/23 19:01 98.7 F 92 18 142/93 97 07/10/23 18:04 98.3 F 111 H 18 145/101 95 Intake and Output 05/30/24 05/31/24 05/31/24 22:59 06:59 14:59 Intake Total 75 Balance 75 Intake: IV 75 Sodium Chloride 0.9% 1, 75 000 ml @ 75 mls/hr IV . [id number] [facility] Rx#:[id number] Other: Voiding Method Toilet # Voids 1 Weight 61.235 kg Patient is a young female, in no acute distress. Patient is alert awake oriented to time place and person. Speech and language functions are normal. Patient can name and repeat very well. No aphasia or dysarthria. Attention, concentration and fund of knowledge is adequate. On cranial nerve examination, pupils are equal, round and reacting to light, visual gonzalez are full on confrontation, with no neglect on double simultaneous stimulation. Extraocular muscles are intact with no nystagmus. Face is symmetric, tongue protrudes to the midline. Palatal elevation and sensation normal, hearing and shoulder shrug normal, facial sensation normal. On muscle strength testing, there is no pronator drift and the strength is normal in arms and legs distally and proximally. Deep tendon reflexes are symmetric 1 all over and plantars downgoing bilaterally. Sensory to touch is equal with no neglect on double simultaneous stimulation. Cerebellar function showed no ataxia for [id number] testing. No dysdiadochokinesia. No ataxia for [id number] testing on either side. Tone and bulk of muscles normal. Gait deferred.. On general examination, there is no carotid bruit or murmur, S1-S2 audible. Chest is clear on consultation. Abdomen is soft nontender. No organomegaly, bowel sounds present. Peripheral pulses are present. No peripheral edema. Results - Laboratory Findings CBC and BMP: 07/10/23 19:37 07/10/23 19:37 Abnormal Lab Findings: Abnormal Labs 07/10/23 07/10/23 07/10/23 19:37 19:37 23:42 WBC 14.2 H Neutrophils # 12.0 H Chloride 109 H Glucose 100 H Urine Appearance Cloudy H Urine Protein Trace H Urine Ketones 1+ H Urine Nitrite Positive H Ur Leukocyte Esterase Moderate H Urine WBC 62 H Urine Bacteria Many H Hyaline Casts 23 H Urine Mucus Many H Ur Amphetamines Screen Detected H U Methamphetamines Scrn Detected H Urine Cocaine Screen Detected H U Marijuana (THC) Screen Detected H Assessment and Plan Assessment: * Seizure, likely provoked due to polysubstance abuse. Patient's urine positive for cocaine, amphetamine, methamphetamine and marijuana. * History of polysubstance abuse * Chronic marijuana use Plan: * Patient's seizure was likely provoked due to polysubstance abuse. She never has any history of seizure. * CT head, and current neurological examination are normal. * Patient strongly recommended to completely abstain from substance abuse. * Patient informed of [place] state law of no driving unless seizure-free for 6 months, climbing ladders, operating dangerous machinery or unsupervised swimming. * Recommend director of social work intervention for substance abuse. * Neurologically, no other workup indicated. Thank you for the consult.
== END 2023-07-11 16:22 | disposition home or self-care (01) ==
LOC: EC 18:00 → 3SCARD 07-11 00:28
PROVIDERS: ADMIT Family Medicine; ATTEND Family Medicine
DX: R56.9 Unspecified convulsions (principal); F14.90 Cocaine use, unspecified, uncomplicated; F12.90 Cannabis use, unspecified, uncomplicated
CPT/HCPCS: 96361; 96374; 99285; 36415; 93005; 80053; 83735; 85025; 81001; 81025; 80306; 70450; G0378; G0480; J0696; 80320